=== PATIENT | female | born 1950 | race Caucasian/White ===

== ENCOUNTER 2016-10-02 19:00 | Emergency (ER) | payer MEDICARE, BC ==
[2016-10-02 19:23] VITALS: BP 127/74
[2016-10-02] MEDS ORDERED: Phenylephrine 1% NASAL* 15 ML BOT BOTH NARES ONE (19:26)
[2016-10-02] MEDS ORDERED: Silver Nitrate/Potassium Nitr* 1 EA STICK TOPICAL ONE (19:42)
--- NOTE | 2016-10-02 20:51 | UC ---
Epistaxis Nasal HPI - HPI Summary HPI Summary: nosebleed for past 2 hours. Steady drip, can't get it stopped. She is pinching the bridge of her nose to try to stop it. Has Kleenex stuffed up nose. No bleeding at present, though she can feel it dripping down throat. - History of Current Complaint Chief Complaint: UCGeneralIllness Stated Complaint: nose bleed Time Seen by Provider: 10/02/16 19:26 Hx Obtained From: Patient Onset/Duration: Sudden Onset, Lasting Hours - 2 Timing: Constant Severity Initially: Mild Severity Currently: Mild Pain Intensity: 0 Pain Scale Used: 0-10 Numeric Character: Light Aggravating Factor(s): Nothing - gets nosebleeds a few times a year since childhood. Has seen Dr. Tolbert, had nose cauterized twice Alleviating Factor(s): Nothing - Allergies/Home Medications Allergies/Adverse Reactions: Allergies Allergy/AdvReac Type Severity Reaction Status Date / Time Cephalexin [From Keflex] Allergy Unknown Verified 10/02/16 19:17 Reaction Details Histamine Allergy HEART Verified 10/02/16 19:17 PALPITATIONS Latex Allergy SEVERE RASH Verified 10/02/16 19:17 Sulfa Antibiotics Allergy Unknown Verified 10/02/16 19:17 Reaction Details Home Medications: Home Medications BuPROPion XL* [Bupropion XL*] 300 mg PO DAILY 10/02/16 [History Confirmed ] PMH/Surg Hx/FS Hx/Imm Hx Respiratory History Of: Reports: Bronchitis - HX OF Psychological History Of: Reports: Anxiety - ON MEDICATION FOR, Depression - Surgical History Surgical History: Yes Surgery Procedure, Year, and Place: LASIK EYE SURGERY- 10 YEARS AGO. DISCECTOMY AND FUSION. BREAST REDUCTION-10 YEARS AGO. GALLBLADDER REMOVED-20 YEARS AGO. HYSTERECTOMY WITH OOPHORECTOMY- 30 YEARS AGO. 2 HEEL SURGERIES FOR PLANTAR FASCITIS. RIGHT KNEE REPLACEMENT-4 YEARS AGO - Family History Known Family History: Negative: Blood Disorder - no bleeding disorders - Social History Occupation: Employed Full-time Lives: With Family Alcohol Use: None Substance Use Type: None Smoking Status (MU): Never Smoked Tobacco - Immunization History Most Recent Influenza Vaccination: May 2016 Review of Systems Constitutional: Negative Skin: Negative Eyes: Negative ENT: Nasal Discharge - bleeding Respiratory: Negative Cardiovascular: Negative Gastrointestinal: Negative Genitourinary: Negative Motor: Negative Neurovascular: Negative Musculoskeletal: Negative Neurological: Negative Psychological: Negative All Other Systems Reviewed And Are Negative: Yes Physical Exam Triage Information Reviewed: Yes Appearance: Well-Appearing, No Pain Distress, Well-Nourished Vital Signs: Initial Vital Signs Temp 98.5 F 10/02/16 19:14 Pulse 58 10/02/16 19:14 Resp 18 10/02/16 19:14 BP 127/74 10/02/16 19:14 Pulse Ox 98 10/02/16 19:14 Vital Signs Reviewed: Yes Eye Exam: Normal ENT Exam: Other - bleeding from right naris. Site of bleeding appears to be on septum, not far from exit ENT: Positive: Pharynx normal, TMs normal Neck exam: Normal Respiratory Exam: Normal Musculoskeletal Exam: Normal Neurological Exam: Normal Psychological Exam: Normal Skin Exam: Normal Epistaxis Nasal Course/Dx - Course Course Of Treatment: had her blow out clots. Put Flip-Synephrine spray up nose. Had her pinch for 10 min. Could see source of bleeding on septum about 1/2" from exit. Cauterized with silver nitrate three separate times. Pinched for 10 min. Bleeding stopped. No bleeding from above cautery site. No blood dripping down throat - Differential Dx/Diagnosis Differential Diagnosis/HQI/PQRI: Epistaxis, Hypertension Provider Diagnoses: epistaxis Discharge - Discharge Plan Condition: Stable Disposition: HOME Patient Education Materials: Nosebleed (ED) Referrals: Jason Stokes MD [Primary Care Provider] -
== END 2016-10-02 20:30 | disposition home or self-care (01) ==
LOC: UCCORT 19:00
DX: R04.0 Epistaxis (principal); Z88.1 Allergy status to other antibiotic agents; Z88.2 Allergy status to sulfonamides
CPT/HCPCS: 30901; 99212; A9270-GY; G0463

== ENCOUNTER 2017-05-14 14:16 | Emergency (ER) | payer MEDICARE, BC ==
[2017-05-14 14:56] VITALS: BP 130/77
--- NOTE | 2017-05-14 15:02 | UC ---
Palpitation/Dysrhythmia HP - HPI Summary HPI Summary: 66 yo F with hx anxiety and afib c/o shakiness and anxiety, and feeling like I' m dying for a few days, worse today after mowing the lawn. She states her blood pressure was "high" and her pulse was 92 and wouldn't slow down. Pt called her doctor and was advised to seek medical attention. Pt states she has recently started gabapentin for clearing her throat, and pt thinks the symptoms could be related to the gabapentin. Pt denies chest pain and SOB. States she is constipated and has had abd discomfort. No cough, no fever. Pt became nauseous during the UC visit. No vomiting. - History of Current Complaint Chief Complaint: UCGeneralIllness Stated Complaint: ANXIETY Hx Obtained From: Patient Hx Last Menstrual Period: n/a Onset/Duration: Gradual Onset, Lasting Days, Worse Since - this am, after mowing the lawn Timing: Constant Severity Initially: Moderate Severity Currently: Moderate Pain Intensity: 0 Pain Scale Used: 0-10 Numeric Character: Fast Aggravating Factor(s): Exertion - mowing the lawn Alleviating Factor(s): Nothing Associated Signs & Symptoms: Positive: Dizzy - Allergy/Home Medications Allergies/Adverse Reactions: Allergies Allergy/AdvReac Type Severity Reaction Status Date / Time Cephalexin [From Keflex] Allergy Unknown Verified 05/14/17 14:29 Reaction Details Histamine Allergy HEART Verified 05/14/17 14:29 PALPITATIONS Latex Allergy SEVERE RASH Verified 05/14/17 14:29 Sulfa Antibiotics Allergy Unknown Verified 05/14/17 14:29 Reaction Details Home Medications: Home Medications Aspirin [Aspirin 81 MG TAB] 81 mg PO DAILY 05/14/17 [History Confirmed 05/14/17] Atenolol TAB* [Tenormin TAB* 25 MG] 25 mg PO DAILY 05/14/17 [History Confirmed 05/14/17] Busparone 300 mg PO DAILY 05/14/17 [History Confirmed 05/14/17] Calcium Carbonate-Cholecalcife [Calcium 1000 + D] 1 tab PO DAILY 05/14/17 [ History Confirmed 05/14/17] Cholecalciferol TAB* [Vitamin D TAB*] 1,000 unit PO DAILY 05/14/17 [History Confirmed 05/14/17] Flaxseed (Linseed) [Flax Seed Oil 1000 mg] 1 cap PO DAILY 05/14/17 [History Confirmed 05/14/17] Gabapentin CAP(*) [Neurontin 100 mg CAP(*)] 100 mg PO BID 05/14/17 [History Confirmed 05/14/17] [place]-3 Fatty Acids [Fish Oil] 1,000 mg PO DAILY 05/14/17 [History Confirmed 12/25] Pantoprazole TAB (NF) [Protonix TAB (NF)] 40 mg PO DAILY 05/14/17 [History Confirmed 05/14/17] Sertraline* [Zoloft*] 150 mg PO DAILY 05/14/17 [History Confirmed 05/14/17] Simvastatin TAB(NF) [Zocor(NF)] 40 mg PO 1700 05/14/17 [History Confirmed ] Zolpidem TAB* [Ambien TAB*] 10 mg PO BEDTIME PRN 05/14/17 [History Confirmed 12/25] clonazePAM TAB(*) [KlonoPIN TAB(*)] 0.5 mg PO TID PRN 05/14/17 [History Confirmed 05/14/17] PMH/Surg Hx/FS Hx/Imm Hx Previously Healthy: No Endocrine History: Dyslipidemia Cardiovascular History: Atrial Fibrillation Psychological History: Other Other Psychological History: PTSD - Surgical History Surgical History: Yes Surgery Procedure, Year, and Place: LASIK EYE SURGERY- 10 YEARS AGO. DISCECTOMY AND FUSION. BREAST REDUCTION-10 YEARS AGO. GALLBLADDER REMOVED-20 YEARS AGO. HYSTERECTOMY WITH OOPHORECTOMY- 30 YEARS AGO. 2 HEEL SURGERIES FOR PLANTAR FASCITIS. RIGHT KNEE REPLACEMENT-4 YEARS AGO - Family History Known Family History: Negative: Blood Disorder - no bleeding disorders - Social History Lives: With Family - daughter Alcohol Use: None Substance Use Type: None Smoking Status (MU): Never Smoked Tobacco - Immunization History Most Recent Influenza Vaccination: no Review of Systems Constitutional: Negative Skin: Negative Eyes: Negative ENT: Negative Respiratory: Negative Cardiovascular: Palpitations Gastrointestinal: Nausea Genitourinary: Negative Motor: Negative Neurovascular: Negative Musculoskeletal: Negative Neurological: Negative Psychological: Anxious All Other Systems Reviewed And Are Negative: Yes Physical Exam Triage Information Reviewed: Yes Appearance: No Pain Distress, Well-Nourished, Ill-Appearing Vital Signs: Initial Vital Signs Temp 98.5 F 05/14/17 14:23 Pulse 84 05/14/17 14:23 Resp 16 05/14/17 14:23 BP 123/79 05/14/17 14:23 Pulse Ox 98 05/14/17 14:23 Vital Signs Reviewed: Yes Eyes: Positive: Conjunctiva Clear ENT: Positive: Normal ENT inspection Neck: Positive: Supple, Nontender, No Lymphadenopathy Respiratory: Positive: Lungs clear, Normal breath sounds, No respiratory distress Cardiovascular: Positive: RRR, No Murmur, Pulses Normal, Brisk Capillary Refill Abdomen Description: Positive: Nontender, No Organomegaly, Soft. Negative: Distended, Guarding, Hepatomegaly, McBurney's Point Tenderness, Peritoneal Signs , Pulsatile Mass, Splenomegaly Bowel Sounds: Positive: Present Musculoskeletal: Positive: Strength Intact, ROM Intact Neurological: Positive: Alert, Muscle Tone Normal Psychological Exam: Normal Skin Exam: Normal Palpitations Course/Dx - Differential Dx/Diagnosis Provider Diagnoses: palpitations. generalized anxiety disorder - Physician Notifications Discussed Patient Care With: Abisai Mckay Time Discussed With Above Provider: 15:00 Instructed by Provider To: Transfer Discharge - Discharge Plan Condition: Stable Disposition: TRANS HIGHER LVL OF CARE FAC Discharge Disposition Comment: to [facility] by [facility] ambulance
== END 2017-05-14 15:00 | disposition short-term general hospital (02) ==
LOC: UCCORT 14:16
DX: R00.2 Palpitations (principal); F41.9 Anxiety disorder, unspecified; Z86.79 Personal history of other diseases of the circulatory system
CPT/HCPCS: 93005; 99213; G0463

== ENCOUNTER 2018-06-30 16:50 | Emergency (ER) | payer MEDICARE, BC ==
[2018-06-30 17:21] VITALS: BP 95/67
--- NOTE | 2018-06-30 17:36 | UC ---
Knee Pain HPI - HPI Summary HPI Summary: Slipped and fell on wet grass today. rolled R ankle and fell on R knee. able to walk and bendover w/ no issues. does feel some pain in R ankle ,swelling, bruising. - History of Current Complaint Chief Complaint: UCLowerExtremity Stated Complaint: RIGHT ANKLE INJURY Time Seen by Provider: 06/30/18 17:19 Hx Obtained From: Patient Hx Last Menstrual Period: n/a ?: No Onset/Duration: Sudden Onset Severity Initially: Mild Severity Currently: Mild Location Of Injury: right Pain Intensity: 6 Character: Sharp Aggravating Factor(s): Movement, Weight Bearing, Prolonged Standing Alleviating Factor(s): Rest Associated Signs And Symptoms: Positive: Swelling, Bruising Able to Bear Weight: No - Risk Factors Septic Arthritis Risk Factor: Negative Gout Risk Factor: Negative - Allergies/Home Medications Allergies/Adverse Reactions: Allergies Allergy/AdvReac Type Severity Reaction Status Date / Time MS Cephalexin [From Keflex] Allergy Unknown Verified 05/14/17 14:29 Reaction Details MS Histamine [Histamine] Allergy HEART Verified 05/14/17 14:29 PALPITATIONS MS Latex [Latex] Allergy SEVERE RASH Verified 05/14/17 14:29 MS Sulfa Antibiotics Allergy Unknown Verified 05/14/17 14:29 [Sulfa Antibiotics] Reaction Details gabapentin AdvReac See Comment Verified 06/30/18 17:21 Home Medications: Home Medications Cyclobenzaprine TAB* [Flexeril 10 MG TAB*] 10 mg PO TID PRN 06/30/18 [History Confirmed 06/30/18] Oxycodone TAB(NF) [Oxycodone HCl 10 MG] 10 mg PO TID 06/30/18 [History Confirmed 06/30/18] PMH/Surg Hx/FS Hx/Imm Hx Cardiovascular History: Cardiac Disease - Surgical History Surgical History: Yes Surgery Procedure, Year, and Place: LASIK EYE SURGERY- 10 YEARS AGO. DISCECTOMY AND FUSION. BREAST REDUCTION-10 YEARS AGO. GALLBLADDER REMOVED-20 YEARS AGO. HYSTERECTOMY WITH OOPHORECTOMY- 30 YEARS AGO. 2 HEEL SURGERIES FOR PLANTAR FASCITIS. RIGHT KNEE REPLACEMENT-4 YEARS AGO - Family History Known Family History: Positive: Other - noncontributory Negative: Blood Disorder - no bleeding disorders - Social History Alcohol Use: None Substance Use Type: None Smoking Status (MU): Never Smoked Tobacco - Immunization History Most Recent Influenza Vaccination: no Review of Systems Constitutional: Negative Skin: Negative Respiratory: Negative Cardiovascular: Negative Neurovascular: Negative Musculoskeletal: Arthralgia, Edema All Other Systems Reviewed And Are Negative: Yes Physical Exam Triage Information Reviewed: Yes Appearance: Well-Appearing, No Pain Distress Vital Signs: Initial Vital Signs Temp 98.4 F 06/30/18 17:11 Pulse 80 06/30/18 17:11 Resp 16 06/30/18 17:11 BP 95/67 06/30/18 17:11 Pulse Ox 98 06/30/18 17:11 Vital Signs Reviewed: Yes Cardiovascular: Positive: Brisk Capillary Refill - in toes Musculoskeletal: Positive: ROM Limited @ - in R ankle, Edema @ - in R ankle, Other: - able to push against resistance at R ankle Neurological: Positive: Muscle Tone Normal - in LE, Other: - can feel light touch in R LE Psychological: Positive: Age Appropriate Behavior Skin: Positive: Other - bruising in R ankle Procedures - Procedure Summary Procedure Summary: Posterior Splint placed w/ crutches. Diagnostics - Radiology No standard instances Radiology Interpretation Completed By: Radiologist - IMPRESSION: OBLIQUE NONDISPLACED FRACTURE OF THE DISTAL FIBULA WITH PROBABLE NONDISPLACED FRACTURE OF THE MEDIAL MALLEOLUS. Knee Pain Course/Dx - Course Course Of Treatment: R ankle pain, swelling after fall today. Pain w/ weight bearing activities. xray neg. for fx. brace, elevate, . has oxycodone at home that she will take. will need to see ortho. - Differential Dx/Diagnosis Differential Diagnosis/HQI/PQRI: Abrasion, Bursitis, Contusion, Fracture (Closed ), Sprain, Strain, Tendonitis Provider Diagnoses: R ankle sprain Discharge - Sign-Out/Discharge Documenting (check all that apply): Patient Departure All imaging exams completed and their final reports reviewed: Yes - Discharge Plan Condition: Good Disposition: HOME Prescriptions: Ibuprofen 600 mg PO Q8HR PRN #120 tablet PRN Reason: Pain Patient Education Materials: Ankle Fracture (ED), Crutch Instructions (ED) Referrals: Jason Pedroza MD [Medical Doctor] - 1 Day Jason Stokes MD [Primary Care Provider] - Additional Instructions: Call Orthopedic doctor for follow up. You mentioned you preferred [facility], please feel free to contact them tomorrow. It is not safe for you to drive. - Billing Disposition and Condition Condition: GOOD Disposition: Home
--- NOTE | 2018-06-30 17:59 | RAD ---
HISTORY: fall on R ankle, ankle swelling Right COMPARISONS: None VIEWS: 2 , Frontal and lateral views of the right ankle FINDINGS: BONE DENSITY: There is diffuse osteopenia. BONES: There is a nondisplaced oblique fracture of the distal fibula . There is a probable nondisplaced fracture of the medial malleolus. There are plantar calcaneal enthesophytes. 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 ALIGNMENT: There is no dislocation. The mortise is intact. SOFT TISSUES: Unremarkable. OTHER FINDINGS: None. IMPRESSION: OBLIQUE NONDISPLACED FRACTURE OF THE DISTAL FIBULA WITH PROBABLE NONDISPLACED FRACTURE OF THE MEDIAL MALLEOLUS.
== END 2018-06-30 18:51 | disposition home or self-care (01) ==
LOC: UCCORT 16:50
DX: S82.831A Other fracture of upper and lower end of right fibula, initial encounter for closed fracture (principal); S93.401A Sprain of unspecified ligament of right ankle, initial encounter; W01.0XXA Fall on same level from slipping, tripping and stumbling without subsequent striking against object, initial encounter; Y92.096 Garden or yard of other non-institutional residence as the place of occurrence of the external cause; Z96.651 Presence of right artificial knee joint; Z88.2 Allergy status to sulfonamides; Z88.8 Allergy status to other drugs, medicaments and biological substances; Z88.1 Allergy status to other antibiotic agents; Z91.040 Latex allergy status
CPT/HCPCS: 99213; G0463

== ENCOUNTER 2018-11-23 09:14 | Emergency (ER) | payer MEDICARE, BC ==
[2018-11-23 09:28] VITALS: BP 114/65
--- NOTE | 2018-11-23 10:19 | UC ---
Complaint Female HPI - HPI Summary HPI Summary: 67-year-old female presents with a week and a half of dysuria, frequency, urgency, and sensation of being unable to fully empty her bladder. Denies fever , chills, abdominal pain, back or flank pain, nausea, vomiting, hematuria, vaginal discharge, or abnormal bleeding. - History Of Current Complaint Chief Complaint: UCGU Stated Complaint: UTI SYMPTOMS Time Seen by Provider: 11/23/18 09:58 Hx Last Menstrual Period: n/a Pain Intensity: 7 - Allergies/Home Medications Allergies/Adverse Reactions: Allergies Allergy/AdvReac Type Severity Reaction Status Date / Time cephalexin [From Keflex] Allergy heart Verified 11/23/18 09:25 palpatations latex Allergy Rash Verified 11/23/18 09:25 Sulfa (Sulfonamide Allergy Unknown Verified 11/23/18 09:25 Antibiotics) Reaction Details gabapentin AdvReac See Comment Verified 11/23/18 09:25 histamines Allergy heart Uncoded 11/23/18 09:25 palpations Home Medications: Home Medications Aspirin TAB* [Aspirin 325 MG TAB*] 1 tab DAILY 11/23/18 [History Confirmed 11/23] busPIRone TAB* [Buspar TAB*] 1 tab DAILY 11/23/18 [History Confirmed 11/23/18] PMH/Surg Hx/FS Hx/Imm Hx - Additional Past Medical History Additional PMH: chronic back pain GI/ History: Gastroesophageal Reflux Psychological History: Anxiety, Depression - Surgical History Surgical History: Yes Surgery Procedure, Year, and Place: LASIK EYE SURGERY- 10 YEARS AGO. DISCECTOMY AND FUSION. BREAST REDUCTION-10 YEARS AGO. GALLBLADDER REMOVED-20 YEARS AGO. HYSTERECTOMY WITH OOPHORECTOMY- 30 YEARS AGO. 2 HEEL SURGERIES FOR PLANTAR FASCITIS. RIGHT KNEE REPLACEMENT-4 YEARS AGO - Family History Known Family History: Positive: Other - noncontributory Negative: Blood Disorder - no bleeding disorders - Social History Occupation: Retired Lives: Alone Alcohol Use: None Substance Use Type: None Smoking Status (MU): Never Smoked Tobacco - Immunization History Most Recent Influenza Vaccination: no Review of Systems All Other Systems Reviewed And Are Negative: Yes Constitutional: Negative: Fever, Chills Respiratory: Positive: Negative Cardiovascular: Positive: Negative Gastrointestinal: Negative: Abdominal Pain, Vomiting, Diarrhea, Nausea Genitourinary: Positive: Dysuria, Frequency, Urgency. Negative: Hematuria, Vaginal/Penile Discharge, Ulceration/Lesion, Abnormal Bleeding Musculoskeletal: Positive: Negative Neurological: Positive: Negative Is Patient Immunocompromised?: No Physical Exam - Summary Physical Exam Summary: GENERAL APPEARANCE: Well developed, well nourished, alert and cooperative, and appears to be in no acute distress. CARDIAC: Normal S1 and S2. No S3, S4 or murmurs. Rhythm is regular. There is no peripheral edema, cyanosis or pallor. Extremities are warm and well perfused. Capillary refill is less than 2 seconds. Peripheral pulses intact. LUNGS: Clear to auscultation without rales, rhonchi, wheezing or diminished breath sounds. ABDOMEN: Positive bowel sounds. Soft, nondistended, nontender. No guarding or rebound. No masses or hepatosplenomegally. No CVA tenderness. MUSKULOSKELETAL: ROM intact to all extremities. No joint erythema or tenderness. Normal muscular development. Normal gait. SKIN: Skin normal color, texture and turgor with no lesions or eruptions. Triage Information Reviewed: Yes Vital Signs: Initial Vital Signs Temp 97.4 F 11/23/18 09:25 Pulse 79 11/23/18 09:25 Resp 18 11/23/18 09:25 BP 114/65 11/23/18 09:25 Pulse Ox 97 11/23/18 09:25 Vital Signs Reviewed: Yes Complaint Female Dx - Course Course Of Treatment: 67-year-old female presents with a week and a half of dysuria, frequency, urgency, and sensation of being unable to fully empty her bladder. Denies fever , chills, abdominal pain, back or flank pain, nausea, vomiting, hematuria, vaginal discharge, or abnormal bleeding. Afebrile. Vital signs stable. Exam reveals an adult female in no acute distress with an overall unremarkable exam. [id number] urinalysis shows 3+ leukocyte esterase, 2+ blood, 2+ protein. Urine culture is pending. We will treat for a UTI with Macrobid twice a day 5 days and Pyridium 1 tab 3 times a day 2 days. Patient is to follow-up with her primary care provider in 5 days if symptoms do not improve. Anticipatory guidance and warning symptoms were reviewed with the patient. Verbalizes understanding and agrees with plan of care. - Differential Dx/Diagnosis Differential Diagnosis/HQI/PQRI: Renal Colic, Ureteral Stone, Urinary Tract Infection Provider Diagnosis: UTI (urinary tract infection) Discharge - Sign-Out/Discharge Documenting (check all that apply): Patient Departure All imaging exams completed and their final reports reviewed: No Studies - Discharge Plan Condition: Stable Disposition: HOME Prescriptions: Nitrofurantoin Monohyd/M-Cryst [Macrobid 100 mg Capsule] 100 mg PO BID #10 cap Phenazopyridine TAB* [Pyridium 100 mg TAB*] 100 mg PO TID #6 tab Patient Education Materials: Urinary Tract Infection in Women (ED) Referrals: Jason Stokes MD [Primary Care Provider] - 5 Days (If no improvement in symptoms.) Additional Instructions: Your urine test in the clinic today is suggestive of a urinary tract infection. We will start you on an antibiotic to treat for the infection. We will also send a urine culture today to see what bacteria grow out and make sure the antibiotic you were prescribed is appropriate to treat the infection. It will take 48-72 hours to get these results. We will contact you if there is any change in your treatment plan. Start Macrobid 1 tab twice a day for 5 days. Take Pyridium 1 tablet every 8 hours for next 2 days to help with the discomfort. This medication will turn your urine an orange color. Drink plenty of fluids. Follow up with your primary care provider in 5 days if symptoms persist. Seek immediate medical attention in the emergency room if you develop fever greater than 100.5 F, have severe abdominal pain, persistent vomiting, or any worsening of symptoms. - Billing Disposition and Condition Condition: STABLE Disposition: Home - Attestation Statements Provider Attestation: Per institutional requirements, I have reviewed the chart, however, I was not consulted specifically or made aware of this patient by the midlevel provider. I did not personally evaluate, interact with , or disposition this patient.
--- NOTE | 2018-11-26 07:20 | UC ---
- Progress Note Progress Note: + E Coli on Macrobid Sensitive to Macrobid - no change wesley 11/26/18 Course/Dx - Diagnoses Provider Diagnoses: UTI (urinary tract infection) Discharge - Sign-Out/Discharge Documenting (check all that apply): Post-Discharge Follow Up All imaging exams completed and their final reports reviewed: No Studies - Discharge Plan Condition: Stable Disposition: HOME Prescriptions: Nitrofurantoin Monohyd/M-Cryst [Macrobid 100 mg Capsule] 100 mg PO BID #10 cap Phenazopyridine TAB* [Pyridium 100 mg TAB*] 100 mg PO TID #6 tab Patient Education Materials: Urinary Tract Infection in Women (ED) Referrals: Jason Stokes MD [Primary Care Provider] - 5 Days (If no improvement in symptoms.) Additional Instructions: Your urine test in the clinic today is suggestive of a urinary tract infection. We will start you on an antibiotic to treat for the infection. We will also send a urine culture today to see what bacteria grow out and make sure the antibiotic you were prescribed is appropriate to treat the infection. It will take 48-72 hours to get these results. We will contact you if there is any change in your treatment plan. Start Macrobid 1 tab twice a day for 5 days. Take Pyridium 1 tablet every 8 hours for next 2 days to help with the discomfort. This medication will turn your urine an orange color. Drink plenty of fluids. Follow up with your primary care provider in 5 days if symptoms persist. Seek immediate medical attention in the emergency room if you develop fever greater than 100.5 F, have severe abdominal pain, persistent vomiting, or any worsening of symptoms. - Billing Disposition and Condition Condition: STABLE Disposition: Home
== END 2018-11-23 10:29 | disposition home or self-care (01) ==
LOC: UCCORT 09:14
DX: N39.0 Urinary tract infection, site not specified (principal); F41.9 Anxiety disorder, unspecified; Z88.1 Allergy status to other antibiotic agents; Z88.2 Allergy status to sulfonamides; Z88.8 Allergy status to other drugs, medicaments and biological substances; Z91.040 Latex allergy status; Z79.82 Long term (current) use of aspirin; Z79.899 Other long term (current) drug therapy
CPT/HCPCS: 81003; 87077; 87086; 87186; 99212; G0463

== ENCOUNTER 2018-12-22 08:02 | Emergency (ER) | payer MEDICARE, BC ==
--- OUTSIDE RECORDS SUMMARY | 2018-12-22 08:20 | XMS REPORT | Continuity of Care Document ---
:1950 External Reference #:[id number] Author Name Micaela Chris Care Team Providers Name Role Phone Jason Stokes M.D. Care Team Information Convention Services Manager Unavailable Payers Date Identification Numbers Payment Provider Subscriber Policy Number: [id number] Medicare Brenda Vargas PayID: [id number] [address] [place] [address] Policy Number: [id number] [facility] Brenda Vargas PayID: [id number] [address] [place] [address] Advance Directives Description No Information Available Problems Date Description Provider Status Onset: 10/13/2011 Hypertrophy of nasal turbinates Ismael Tolbert M.D. Active Onset: 10/13/2011 Gastroesophageal reflux disease Ismael Tolbert M.D. Active Onset: 10/13/2011 Cough Ismael Tolbert M.D. Active Onset: 10/13/2011 Chronic rhinitis Ismael Tolbert M.D. 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 @ [employer] Tobacco Use Start: Unknown Never Smoked Cigarettes ETOH Use Never used alcohol Recreational Drug Use Never Used Drugs Tobacco Use Start: Unknown Patient has never smoked Allergies, Adverse Reactions, Alerts Date Description Reaction Status Severity Comments 02/10/2011 Keflex Active 02/10/2011 Sulfa Antibiotics Active 02/10/2011 Latex Active 02/10/2011 Histamines INCREASED HEART RATE Active 04/01/2012 Caffeine Active Medications Medication Date Status Form Strength Qnty SIG Indications Ordering Provider Pantoprazole 06/[address] 40mg 90tab 1 po qd Tomasz jessica Guevara M.D. Zoloft Active Tablets 200mg daily Unknown /0000 Ecotrin Low Active Tablets DR 81mg daily Unknown Strength 0000 Fish Oil Om3 Active Capsules DR 1000mg bid Unknown / Calcium + D Active Tablets 600-400mg bid Unknown -Unit Flax Seed Oil Active Capsules 1200mg Daily Unknown Miralax Active Powder [id number] Unknown Simvastatin Active Tablets 40mg 1 by mouth Unknown every day Buspirone HCL Active Tablets 30mg Unknown Zolpidem Tartrate Active Tablets ER 12.5mg 1 by mouth Unknown ER 0000 every night at bedtime routinely Oxycodone-Acetami Active Tablets 5-325mg 1-2 every Unknown nophen 6 hours as needed Cyclobenzaprine Active Tablets 10mg 1 by mouth Unknown HCL 0000 three times a day as needed muscle spasms Azelastine HCL 12/27 Hx Solution 137mcg/Sp 3unit 2 spays leia lopez everyday Ismael, - both M.D. 10/04 nostrils Dexilant 04/[address] 60mg 5caps one tab daily 5 Ismael, - days M.D. 02/20 sample -- Lot # [id number] 08/22 Omnaris 04/01 Hx Suspension 50mcg/Act 3unit 2 sprays s both Imsael, - nostrils M.D. 09/20 qd Singulair 10/13 Hx Tablets 10mg 7tabs 1 po qd Sample Ismael, - given M.D. 04/01 Azelastine HCL 09/13 Hx Solution 0.15% 2 sprays each Ismael, - nostril qd M.D. 09/13 Azelastine HCL 09/13 Hx Solution 137mcg/Sp 1unit 2 spays leia lopze qday both Ismael, - nostrils M.D. 04/10 Astepro 02/10 Hx Solution 0.15% 3unit 2 sprays s each Ismael, - nostril qd M.D. 09/13 Bupropion HCL XL Hx Tablets ER 300mg daily Unknown 24HR - 12/08 Centrum Silver Hx Tablets daily - 12/[address] 40mg 30cap 1 po qd Unknown s - 12/27 Simvastatin Hx Tablets 80mg hs Unknown - 12/09 Clonazepam Hx Tablets 0.5mg 1 by mouth Unknown prn - 10/04 Immunizations Description No Information Available Vital Signs Date Vital Result Comment 12/09/2018 11:45am Weight 240.00 lb Height 68 inches 5'8" BMI (Body Mass Index) 36.5 kg/m2 BP Systolic 101 mmHg BP Diastolic 57 mmHg Heart Rate 60 /min O2 % BldC Oximetry 96 % Body Temperature 97.6 F Pain Level 3 10/05/2016 9:50am Weight 242.00 lb Height 68 inches 5'8" BMI (Body Mass Index) 36.8 kg/m2 BP Systolic 128 mmHg BP Diastolic 76 mmHg Heart Rate 72 /min O2 % BldC Oximetry 98 % Body Temperature 97.6 F 09/21/2014 3:06pm Weight 241.38 lb Height 68 inches 5'8" BMI (Body Mass Index) 36.7 kg/m2 BP Systolic 112 mmHg BP Diastolic 76 mmHg Heart Rate 70 /min O2 % BldC Oximetry 98 % Body Temperature 98.0 F 12/27/2012 9:54am Weight 235.00 lb Height 68 inches 5'8" BMI (Body Mass Index) 35.7 kg/m2 BP Systolic 130 mmHg BP Diastolic 80 mmHg Heart Rate 76 /min Body Temperature 97.9 F 04/01/2012 1:56pm Weight 229.00 lb Height 68 inches 5'8" BMI (Body Mass Index) 34.8 kg/m2 BP Systolic 120 mmHg BP Diastolic 76 mmHg Heart Rate 55 /min O2 % BldC Oximetry 98 % Body Temperature 96.9 F 10/13/2011 2:19pm Weight 230.00 lb Height 68 inches 5'8" BMI (Body Mass Index) 35.0 kg/m2 BP Systolic 130 mmHg BP Diastolic 80 mmHg Heart Rate 65 /min O2 % BldC Oximetry 95 % Body Temperature 96.8 F 04/14/2011 10:03am Weight 229.00 lb Height 68 inches 5'8" BMI (Body Mass Index) 34.8 kg/m2 BP Systolic 138 mmHg BP Diastolic 80 mmHg Heart Rate 85 /min O2 % BldC Oximetry 95 % Body Temperature 97.3 F 02/10/2011 1:36pm Weight 230.00 lb Height 68 inches 5'8" BMI (Body Mass Index) 35.0 kg/m2 BP Systolic 132 mmHg BP Diastolic 84 mmHg Heart Rate 82 /min O2 % BldC Oximetry 96 % Body Temperature 97.4 F Results Test Date Facility Test Result H/L Range Note Allergens,Zone 10/05/2016 [facility] mRast Class (SEE NOTE) N 1, [address] (Text Only) [place] [address] [phone] D Pteronyssinus <0.10 kU/L N Class 0 D Farinae Mite <0.10 kU/L N Class 0 Cat Hair/Dander <0.10 kU/L N Class 0 Dog Hair/Dander <0.10 kU/L N Class 0 [facility] <0.[facility]U/L N Class 0 B[place] Grass <0.10 kU/L N Class 0 Bahia Grass <0.10 kU/L N Class 0 Cockroach,Ethiopian <0.10 kU/L N Class 0 Penicillium Not <0.10 kU/L N Class 0 Cladosporium Herbarum <0.10 kU/L N Class 0 Apergillis Fumigatus Ige <0.10 kU/L N Class 0 Mucor Racemosus <0.10 kU/L N Class 0 Alternaria Alternata <0.10 kU/L N Class 0 Stemphylium Bot <0.10 kU/L N Class 0 Birch,White <0.10 kU/L N Class 0 [place],White <0.10 kU/L N Class 0 Elm,Ethiopian (White) <0.10 kU/L N Class 0 Nixon,White <0.10 kU/L N Class 0 Hazelnut Tree T004 Ige <0.10 kU/L N Class 0 Fentress,White <0.10 kU/L N Class 0 Hancock,White <0.10 kU/L N Class 0 [place]ountain <0.10 kU/L N Class 0 Ragweed,Short/ <0.10 kU/L N Class 0 Mugwort <0.10 kU/L N Class 0 Plantain,Serbian <0.10 kU/L N Class 0 Pigweed,Rough <0.10 kU/L N Class 0 Sheep Sour Lake (DO <0.10 kU/L N Class 0 Nettle <0.10 kU/L N Class 0 Maple/Benton Ige T001 <0.10 kU/L N Class 0 3 Laboratory test 10/05/2016 [facility] Immunoglobulin 39 IU/mL N 0-100 finding [address] [place] [address] [phone] Immunoglobulin G,Quant,Serum 990 mg/dL N 700-1600 4 1 J31.0 J32.9 2 Levels of Specific IgE Class Description of Class ----- < 0.10 0 Negative 0.10 - 0.31 0/I Equivocal/Low 0.32 - 0.55 I Low 0.56 - 1.40 II Moderate 1.41 - 3.90 III High 3.91 - 19.00 IV Very High 19.01 - 100.00 V Very High >100.00 Very High 3 Test(s) [id number] Cockroach, Ethiopian; [id number]- [id number]-OtG Maria Isabel Martines were developed and had performance characteristics determined by [facility]. These tests have not been cleared or approved by the U.S. Food and Drug Administration. The FDA has determined that such clearance or approval is not necessary. These tests are used for clinical purposes. These should not be regarded as investigational or for research. Performed at: - [facility] [id number] Park Activities Coordinator: Demetrio Shell MD, Phone: [phone] Performed at: - [facility] [id number] Park Activities Coordinator: Yolanda Miguel MD, Phone: [phone] Procedures Date Code Description Status 10/05/2016 55437 Nasal/Sinus Endoscopy, Surgical, W/Control Of Epistaxis Completed 09/21/2014 03259 Nasal/Sinus Endoscopy, Surgical, W/Control Of Epistaxis Completed 12/27/2012 07762 Nasal Endoscopy, Diag. Completed 04/10/2012 62338 Nasal Endoscopy, Diag. Completed 04/01/2012 60822 Nasal Endoscopy, Diag. Completed 02/10/2011 54355 Tympanometry Completed 02/10/2011 00690 Pure Tone Audiometry, Air & Bone Completed 02/10/2011 08153 Fiberoptic Laryngoscopy,Diag. Completed Encounters Type Date Location Provider Dx Diagnosis Office Visit 12/27/2012 [facility] Ismael Tolbert M.D. 472.0 Rhinitis Chronic 9:45a 473.9 Sinusitis Chronic Unspec 470 Deviated Nasal Septum 478.0 Hypertrophy Nasal Turbinates Office Visit 04/10/2012 1:45p [facility] Ismael Tolbert M.D. 784.7 Epistaxis 470 Deviated Nasal Septum 530.81 Esophageal Reflux Office Visit 04/01/2012 1:45p [facility] Ismael Tolbert M.D. 784.7 Epistaxis 470 Deviated Nasal Septum 472.0 Rhinitis Chronic 478.0 Hypertrophy Nasal Turbinates Office Visit 10/13/2011 2:20p [facility] Ismael Tolbert, 478.0 Hypertrophy Nasal M.D. Turbinates 530.81 Esophageal Reflux 786.2 Cough 472.0 Rhinitis Chronic Office Visit 04/14/2011 10:00a [facility] Ismael Tolbert, 389.10 Hearing Loss M.D. Sensorineural Unspec 478.0 Hypertrophy Nasal Turbinates 470 Deviated Nasal Septum 530.81 Esophageal Reflux Office Visit 02/10/2011 1:30p [facility] Ismael Tolbert, 389.10 Hearing Loss M.D. Sensorineural Unspec 478.0 Hypertrophy Nasal Turbinates 470 Deviated Nasal Septum 530.81 Esophageal Reflux Plan of Treatment No Information Available
--- OUTSIDE RECORDS SUMMARY | 2018-12-22 08:21 | XMS REPORT | Continuity of Care Document ---
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 Jason Stokes MD Primary Care Physician Unavailable Payers Date Identification Numbers Payment Provider Subscriber Policy Number: [id number] Medicare Brenda Vargas PayID: [id number] [address] [place] [address] Policy Number: [id number] [facility] Brenda Vargas PayID: [id number] [address] [place] [address] Expires: 2018 Policy Number: [id number] [facility] Brenda Vargas PayID: [id number] [address] [address] [place] [address] Advance Directives Description No Information Available Problems Date Description Provider Status Onset: 11/21/2018 Body mass index 30+ - obesity Steffany Paul PA Active Onset: 11/21/2018 Low back pain Steffany Paul PA Active Onset: 11/21/2018 Bleeding from nose Steffany Paul PA Active Onset: 09/04/2018 Other nonspecific abnormal Steffany Paul PA Active finding of lung field Onset: 09/04/2018 Simple chronic bronchitis Steffany Paul PA Active Onset: 06/19/2018 Aneurysm of thoracic aorta Sloan Goodwin M.D., Active FACC Onset: 02/01/2017 Hypokalemia Sloan Goodwin M.D., Active FACC Onset: 09/06/2016 Paroxysmal atrial fibrillation Sloan Goodwin M.D., Active FAC Family History Date Family Member(s) Observation Comments General Atrial Fibrillation Father due to alcoholic () Father Lung Disease Mother Lung Disease Mother due to Diabetes () Mother due to aortic valve prolaspe () - 2017 First Sister due to Diabetes () First Sister due to thyroid () Social History Type Date Description Comments Sex Unknown Lives With Daughter Home Environment Lives With Daughter and grandaughter Diet Patient follows no dietary restrictions Occupation Retired Work Status Retired Hand Dominance Right-handed Tobacco Use Start: Unknown Never Smoked Cigarettes ETOH Use Denies alcohol use Tobacco Use Start: Unknown Patient denies history of smoking Recreational Drug Use Denies Drug Use Smoking Status Reviewed: 11/21/18 Patient denies history of smoking Exercise Type/Frequency Exercises sporadically Allergies, Adverse Reactions, Alerts Date Description Reaction Status Severity Comments 09/06/2016 Keflex Active 09/06/2016 Latex Active 09/06/2016 Sulfa Drugs Active 09/06/2016 Sulfa Antibiotics Active 12/14/2017 Gabapentin made pt feel psychotic Active Severe Medications Medication Date Status Form Strength Qnty SIG Indications Ordering Provider Flonase Allergy 03/07/20 Active Suspension 50mcg/Act 9.900 1 spray J30.89 Kheti, Relief 18 ml both MD Girma nostrils every day. Sertraline HCL Active Tablets 100mg 2 caps by Unknown 00 mouth every day Pantoprazole Active Tablets DR 40mg 1 by Unknown Sodium 00 mouth every day Bupropion HCL ER Active Tablets ER 300mg 1 by Unknown (XL) 00 24HR mouth every day Simvastatin Active Tablets 40mg 1 by Unknown 00 mouth every day Calcium 500 + D3 Active Tablets 500-600mg 1 by Unknown 00 -Unit mouth once a day Vitamin D Active Capsules 1000Unit 1 by Unknown (Cholecalciferol 00 mouth ) every day Aspirin Adult Active Tablets DR 81mg 1 by Unknown Low Dose 00 mouth every day Flax Seed Oil Active Capsules 1000mg 1 by Unknown 00 mouth every day Clonazepam Active Tablets 0.5mg 1 by Unknown 00 mouth three times a day as needed Oxycodone-Acetam Active Tablets 5-325mg 1 po Aysha inophen 00 every 6 , Cindy hours as S., CFNP needed Zolpidem Active Tablets 10mg 30tab as needed Unknown Tartrate 00 s Gabapentin 04/05/20 Hx Capsules 100mg 60cap take 1 J41.0 Kheti, 17 - s tablet MD Girma Unknown daily for 7 days. Then increase to 1 tablet twice daily. Potassium 02/13/20 Hx Tablets ER 10Meq 14tab take one Davidenko Chloride ER 17 - s tablet by Sloan 04/05/20 mouth Lauren Fay, 17 once a FACC day Potassium 09/06/20 Hx Capsules 10Meq 30cap 2 by I48.0 Davidenko Chloride ER 16 - ER s mouth Sloan Unknown twice a M.Lauren, day FACC during the preparati on Fish Oil Hx Capsules 1000mg 1 by Unknown Burp-Less 00 - mouth Unknown every day Azelastine HCL Hx Solution 0.1% 2 spays Unknown (Nasal) 00 - in each Unknown nostril twice a day as needed Cyclobenzaprine Hx Tablets 10mg 1 po Aysha HCL 00 - three , Cindy Unknown times a S., CFNP day as needed Atenolol Hx Tablets 25mg 1 by Unknown 00 - mouth Unknown every day as needed Hydroxyzine HCL Hx Solution 25mg/ml 3x daily Unknown 00 - as needed Unknown Immunizations Description No Information Available Vital Signs Date Vital Result Comment 11/21/2018 10:17am BP Systolic Sitting Left Arm 110 mmHg BP Diastolic Sitting Left Arm 68 mmHg Heart Rate 64 /min Respiratory Rate 16 /min Height 67.5 inches 5'7.50" Weight 240.00 lb BMI (Body Mass Index) 37.0 kg/m2 BSA (Body Surface Area) 2.20 m2 [place] body weight in kilograms 62 kg O2 Saturation Level with Exercise 97 % 09/04/2018 9:21am BP Systolic Sitting Left Arm 110 mmHg BP Diastolic Sitting Left Arm 65 mmHg Heart Rate 66 /min Respiratory Rate 18 /min Height 67.5 inches 5'7.50" Weight 234.00 lb BMI (Body Mass Index) 36.1 kg/m2 BSA (Body Surface Area) 2.17 m2 [place] body weight in kilograms 62 kg O2 % BldC Oximetry 97 % 06/19/2018 1:07pm BP Systolic Sitting Left Arm 112 mmHg BP Diastolic Sitting Left Arm 70 mmHg Heart Rate 58 /min Respiratory Rate 18 /min Height 67.5 inches 5'7.50" Weight 231.00 lb BMI (Body Mass Index) 35.6 kg/m2 BSA (Body Surface Area) 2.16 m2 [place] body weight in kilograms 62 kg 03/07/2018 3:10pm BP Systolic Sitting Left Arm 114 mmHg BP Diastolic Sitting Left Arm 72 mmHg Heart Rate 68 /min Respiratory Rate 18 /min Height 67.5 inches 5'7.50" Weight 226.00 lb BMI (Body Mass Index) 34.9 kg/m2 BSA (Body Surface Area) 2.14 m2 [place] body weight in kilograms 62 kg O2 % BldC Oximetry 96 % Room air 12/18/2017 10:57am BP Systolic Sitting Right Arm 122 mmHg BP Diastolic Sitting Right Arm 64 mmHg Heart Rate 80 /min Respiratory Rate 16 /min Height 67.5 inches 5'7.50" Weight 218.00 lb BMI (Body Mass Index) 33.6 kg/m2 BSA (Body Surface Area) 2.11 m2 [place] body weight in kilograms 62 kg 12/14/2017 2:30pm BP Systolic Sitting Left Arm 119 mmHg BP Diastolic Sitting Left Arm 77 mmHg Heart Rate 80 /min Respiratory Rate 20 /min Height 67.5 inches 5'7.50" Weight 219.50 lb BMI (Body Mass Index) 33.9 kg/m2 BSA (Body Surface Area) 2.11 m2 [place] body weight in kilograms 62 kg O2 % BldC Oximetry 90 % Ra Pain Level 10 07/04/2017 3:59pm BP Systolic Sitting Left Arm 119 mmHg BP Diastolic Sitting Left Arm 70 mmHg Heart Rate 65 /min Respiratory Rate 16 /min Height 67.5 inches 5'7.50" Weight 215.00 lb BMI (Body Mass Index) 33.2 kg/m2 BSA (Body Surface Area) 2.10 m2 [place] body weight in kilograms 62 kg O2 % BldC Oximetry 93 % 05/25/2017 10:20am BP Systolic Sitting Right Arm 98 mmHg BP Diastolic Sitting Right Arm 78 mmHg Heart Rate 54 /min Respiratory Rate 16 /min Height 67.5 inches 5'7.50" Weight 219.00 lb BMI (Body Mass Index) 33.8 kg/m2 BSA (Body Surface Area) 2.11 m2 [place] body weight in kilograms 62 kg 04/05/2017 1:50pm BP Systolic Sitting Left Arm 112 mmHg BP Diastolic Sitting Left Arm 68 mmHg Heart Rate 51 /min Respiratory Rate 16 /min Height 67.5 inches 5'7.50" Weight 224.00 lb BMI (Body Mass Index) 34.6 kg/m2 BSA (Body Surface Area) 2.13 m2 [place] body weight in kilograms 62 kg O2 % BldC Oximetry 96 % Room air 03/06/2017 1:10pm BP Systolic Sitting Right Arm 114 mmHg BP Diastolic Sitting Right Arm 68 mmHg Heart Rate 54 /min Respiratory Rate 18 /min Height 67.5 inches 5'7.50" Weight 227.00 lb BMI (Body Mass Index) 35.0 kg/m2 BSA (Body Surface Area) 2.14 m2 [place] body weight in kilograms 62 kg O2 % BldC Oximetry 95 % Room air 02/01/2017 3:40pm BP Systolic Sitting Left Arm 134 mmHg BP Diastolic Sitting Left Arm 78 mmHg Heart Rate 60 /min Respiratory Rate 16 /min Height 67.5 inches 5'7.50" Weight 244.00 lb BMI (Body Mass Index) 37.6 kg/m2 BSA (Body Surface Area) 2.21 m2 [place] body weight in kilograms 62 kg 10/19/2016 1:12pm BP Systolic Sitting Left Arm 102 mmHg BP Diastolic Sitting Left Arm 64 mmHg Heart Rate 68 /min Respiratory Rate 16 /min Height 67.5 inches 5'7.50" Weight 239.00 lb BMI (Body Mass Index) 36.9 kg/m2 BSA (Body Surface Area) 2.19 m2 09/06/2016 2:40pm BP Systolic Sitting Left Arm 126 mmHg BP Diastolic Sitting Left Arm 76 mmHg Heart Rate 51 /min Respiratory Rate 18 /min Height 67.5 inches 5'7.50" Weight 244.00 lb BMI (Body Mass Index) 37.6 kg/m2 BSA (Body Surface Area) 2.21 m2 [place] body weight in kilograms 62 kg Results Test Date Facility Test Result H/L Range Note Anion Gap N2N/CCD Import Anion Gap 6 Low 8-16 SerPl-sCnc 017 SerPl-sCnc WBC # Bld Auto N2N/CCD Import WBC # Bld Auto 6.7 3.1-10.7 017 Sodium SerPl-sCnc N2N/CCD Import Sodium SerPl-sCnc 144 136-145 017 RDW RBC Auto-Rto N2N/CCD Import RDW RBC Auto-Rto 13.1 11.7-14.4 017 RDW RBC Auto N2N/CCD Import RDW RBC Auto 42.4 3-47 017 Potassium N2N/CCD Import Potassium 3.6 3.5-5.1 SerPl-sCnc 017 SerPl-sCnc Platelets N2N/CCD Import Platelets 202 150-400 [#/volume] in Blood 017 [#/volume] in by Automated count Blood by Automated count PMV Bld Auto N2N/CCD Import PMV Bld Auto 10.3 8.9-12.4 017 Automated N2N/CCD Import Automated 31.2 25.9-32.7 erythrocyte mean 017 erythrocyte mean corpuscular corpuscular hemoglobin hemoglobin (mass per erythrocyte) Automated N2N/CCD Import Automated 34.1 30.8-34.3 erythrocyte mean 017 erythrocyte mean corpuscular corpuscular hemoglobin hemoglobin concentration measurement (mass/volume) BUN SerPl-mCnc N2N/CCD Import BUN SerPl-mCnc 16 7-18 017 BUN/Creat SerPl N2N/CCD Import BUN/Creat SerPl 17.7 017 Basophils N2N/CCD Import Basophils 0.01 0.0-0.1 [#/volume] in Blood 017 [#/volume] in by Automated count Blood by Automated count Basophils/leuk NFr N2N/CCD Import Basophils/leuk NFr 0.2 0.0- 1.1 Bld Auto 017 Bld Auto Blood erythrocytes N2N/CCD Import Blood erythrocytes 4.23 3.90- 5.40 automated count 017 automated count (number/volume) (number/volume) Blood hemoglobin N2N/CCD Import Blood hemoglobin 13.2 11.6-15.8 measurement 017 measurement (mass/volume) (mass/volume) Blood monocytes N2N/CCD Import Blood monocytes 0.55 0.3-0.9 automated count 017 automated count (number/volume) (number/volume) Co2 SerPl-sCnc N2N/CCD Import Co2 SerPl-sCnc 27 21-32 017 Calcium SerPl-mCnc N2N/CCD Import Calcium SerPl-mCnc 8.5 8.5- 10.1 017 Chloride SerPl-sCnc N2N/CCD Import Chloride 111 High 98-107 017 SerPl-sCnc Creat SerPl-mCnc N2N/CCD Import Creat SerPl-mCnc 0.9 0.6-1.3 017 Eosinophil # Bld N2N/CCD Import Eosinophil # Bld 0.13 0.0-0.5 Auto 017 Auto Eosinophil/leuk NFr N2N/CCD Import Eosinophil/leuk 2.0 0.0-6.6 Bld Auto 017 NFr Bld Auto Glucose N2N/CCD Import Glucose 123 High 74-106 [Mass/volume] in 017 [Mass/volume] in Serum or Plasma Serum or Plasma Hct VFr Bld Auto N2N/CCD Import Hct VFr Bld Auto 38.7 36.0-46.1 017 Lymphocytes N2N/CCD Import Lymphocytes 2.40 1.0-4.0 [#/volume] in Blood 017 [#/volume] in by Automated count Blood by Automated count Lymphocytes/leuk N2N/CCD Import Lymphocytes/leuk 36.0 20.0-42.0 NFr Bld Auto 017 NFr Bld Auto MCV RBC Auto N2N/CCD Import MCV RBC Auto 91.5 80.9-99.0 017 Monocytes/leuk NFr N2N/CCD Import Monocytes/leuk NFr 8.3 4.3- 13.2 Bld Auto 017 Bld Auto Neutrophils # Bld N2N/CCD Import Neutrophils # Bld 3.57 1.8-7.0 Auto 017 Auto Neutrophils/leuk N2N/CCD Import Neutrophils/leuk 53.5 40.4-72.8 NFr Bld Auto 017 NFr Bld Auto TSH SerPl-aCnc N2N/CCD Import TSH SerPl-aCnc 2.69 0.30-4.20 017 Serum or plasma N2N/CCD Import Serum or plasma 0.4 0.2-1.0 total bilirubin 017 total bilirubin measurement (mass/ measurement (mass/volume) Serum or plasma N2N/CCD Import Serum or plasma 1.02 0.76-1.46 thyroxine (T4) free 017 thyroxine (T4) measurement (m free measurement (mass/volume) Serum or plasma N2N/CCD Import Serum or plasma 46 26-192 creatine kinase 017 creatine kinase measurement (enzym measurement (enzymatic activity/volume) Prothrombin time N2N/CCD Import Prothrombin time 12.7 12.0-14.4 (PT) in platelet 017 (PT) in platelet poor plasma by c poor plasma by coagulation assay Prot SerPl-mCnc N2N/CCD Import Prot SerPl-mCnc 7.2 6.4-8.2 017 Magnesium N2N/CCD Import Magnesium 2.1 1.8-2.4 SerPl-mCnc 017 SerPl-mCnc Inr N2N/CCD Import Inr 1.0 0.9-1.1 017 Globulin Ser N2N/CCD Import Globulin Ser 3.7 1.9-4.3 Calc-mCnc 017 Calc-mCnc Fibrin D-dimer Feu N2N/CCD Import Fibrin D-dimer Feu 0.31 measurement in 017 measurement in platelet poor pl platelet poor plasma (mass/volume) Aspartate N2N/CCD Import Aspartate 13 Low 15-37 aminotransferase 017 aminotransferase [Enzymatic [Enzymatic activity/vol activity/volume] in Serum or Plasma Albumin/Glob SerPl N2N/CCD Import Albumin/Glob SerPl 0.9 017 Albumin SerPl-mCnc N2N/CCD Import Albumin SerPl-mCnc 3.5 3.4- 5.0 017 Activated partial N2N/CCD Import Activated partial 22.6 *L 23.4- 35.0 thromboplastin time 017 thromboplastin (aPTT) in pl time (aPTT) in platelet poor plasma by coagulation assay Alt SerPl-cCnc N2N/CCD Import Alt SerPl-cCnc 22 12-78 017 Alp SerPl-cCnc N2N/CCD Import Alp SerPl-cCnc 83 45-117 017 Alisa direct serum N2N/CCD Import Alisa direct serum Negative Negative 017 [facility] <0.2 AI 0.0-0.9 1 [address]odies [address] Antibodies (Ssa) [place] [address] [phone] Sjogrens Antibodies (SSB) <0.2 AI 0.0-0.9 2 Laboratory test 03/06/2017 CRM Anti-Nuclear Negative Negative finding [address] Antibodies AU/[place] [address] Direct [phone] Basic Metabolic 02/08/2017 [facility] Glucose 80 mg/dL N 74-[address] [place], [place] [id number] [phone] BUN 15 mg/dL N 7-18 Creatinine 0.8 mg/dL N 0.6-1.3 Glom Filtration Rate, Estimate >60 mL/min >60 If >60 mL/min >60 4 BUN/Creat 18.7 ratio Sodium 143 mmol/L N 136-145 Potassium 4.1 mmol/L N 3.5-5.1 Chloride 107 mmol/L N 98-107 Carbon Dioxide 29 mmol/L N 21-32 Anion Gap 7 mEq/L Low 8-16 Calcium 9.3 mg/dL N 8.5-10.1 Blood Gas Patient 08/24/2016 N2N/CCD Import Blood Gas Patient 47 Heart Rate Heart Rate FiO2 08/24/2016 N2N/CCD Import FiO2 21 21-100 Miscellaneous Test 08/24/2016 N2N/CCD Import Miscellaneous Test 408 Comment Comment Miscellaneous Test Comment 1 Oxygen 08/24/2016 N2N/CCD Import Oxygen Saturation 86 Low 93-98 Saturation (Pulse Oximetry) (Pulse Oximetry) Laboratory test 08/24/2016 N2N/CCD Import Thyroid 2.45 0.30-4.20 finding Stimulating Hormone (TSH) Laboratory test 08/23/2016 N2N/CCD Import Blood Gas 16 finding Respiration Rate Blood Gas 08/23/2016 N2N/CCD Import Blood Gas Patient Resting Patient Status Status Blood Gas 08/23/2016 N2N/CCD Import Blood Gas Lying Flat Position Position In Bed Oxygen 08/23/2016 N2N/CCD Import Oxygen Saturation 93 93-98 Saturation (Pulse Oximetry) (Pulse Oximetry) Laboratory test 08/23/2016 N2N/CCD Import Anion Gap 9 8-16 finding BUN/Creatinine Ratio 21.2 Blood Urea Nitrogen 17 7-18 Calcium Level 8.0 Low 8.5-10.1 Carbon Dioxide Level 25 21-32 Chloride Level 109 High 98-107 Creatinine 0.8 0.6-1.3 Glucose Screen 159 High 74-106 Magnesium Level 1.7 Low 1.8-2.4 Potassium Level 4.2 # 3.5-5.1 Sodium Level 143 136-145 Laboratory test 08/22/2016 N2N/CCD Import Alanine Aminotransferase 23 12 -78 finding (Alt/SGPT) Albumin 3.2 Low 3.4-5.0 Albumin/Globulin Ratio 1.0 Alkaline Phosphatase 66 45-117 Band Neutrophils % 2 0-8 Basophils # (Auto) 0.02 0.0-0.1 Eosinophils # (Auto) 0.07 0.0-0.5 Globulin 3.1 1.9-4.3 Hematocrit 35.4 Low 36.0-46.1 Hemoglobin 11.9 11.6-15.8 Lipase 208 73-393 Mean Corpuscular Hemoglobin 30.2 25.9-32.7 Mean Corpuscular Hemoglobin Concent 33.6 30.8-34.3 Mean Corpuscular Volume 89.8 80.9-99.0 Mean Platelet Volume 10.4 8.9-12.4 Monocytes # (Auto) 0.58 0.3-0.9 Neutrophils % 76 High 33-73 Platelet Count 167 155-360 RDW Coefficient of Variation 12.6 11.7-14.4 Red Blood Count 3.94 3.90-5.40 Red Cell Distribution Width 40.0 3-47 Total Bilirubin 0.3 0.2-1.0 Total Protein 6.3 Low 6.4-8.2 White Blood Count 10.9 High 3.1-10.7 Aspartate Amino 08/22/2016 N2N/CCD Import Aspartate Amino 14 Low 15-37 Transf (Ast/Sgot) Transf (Ast/Sgot) Differential Total 08/22/2016 N2N/CCD Import Differential 100 Cells Counted Total Cells Counted Eosinophils % 08/22/2016 N2N/CCD Import Eosinophils % 1 0-5 Lymphocytes # 08/22/2016 N2N/CCD Import Lymphocytes # 1.46 Low 1.8-7.0 (Auto) (Auto) Lymphocytes % 08/22/2016 N2N/CCD Import Lymphocytes % 16 Low 17-56 Manual Slide 08/22/2016 N2N/CCD Import Manual Slide Diff Ordered Review Review (Hematology) (Hematology) Monocytes % 08/22/2016 N2N/CCD Import Monocytes % 5 0-10 Total Creatine 08/22/2016 N2N/CCD Import Total Creatine 61 26-192 Kinase Kinase Platelet Estimate 08/22/2016 N2N/CCD Import Platelet Estimate Normal Neutrophils # 08/22/2016 N2N/CCD Import Neutrophils # 8.80 High 1.8-7.0 (Auto) (Auto) 1 J41.0 2 Performed at: RN - [facility] [address] [id number] Audio Video Mechanic: Yolanda Miguel MD, Phone: [phone] 3 O77.52 4 Note: Persistent reduction for 3 months or more in an eGFR <60 mL/min/1.73 m2 defines CKD. Patients with eGFR values >/=60 mL/min/1.73 m2 may also have CKD if evidence of persistent proteinuria is present. The original MDRD equation for estimated GFR is not valid for patients less than 18 years of age. Additional information may be found at www.kdoqi.org. Procedures Date Code Description Status 11/08/2018 60743 Spirometry Completed 11/08/2018 92279 Spirometry Completed 06/19/2018 30958 EKG-Tracing And Report Completed 03/22/2018 15833 Bronchospasm Provocation Evaluation Multi Spirometric Completed Determinati 03/22/2018 42237 Spirometry Completed 12/18/2017 00080 EKG-Tracing And Report Completed 05/25/2017 70813 EKG-Tracing And Report Completed 05/15/2017 53729 Echocardiogram Complete Completed 03/07/2017 45688 Bronchospasm Provocation Evaluation Multi Spirometric Completed Determinati 03/07/2017 64509 Spirometry Completed 09/06/2016 10780 Event Monitor Inter/Review Only Completed 09/06/2016 30044 EKG-Tracing And Report Completed 08/25/2016 15388 Stress Test Interpre And Report Only Completed 08/25/2016 82681 Stress Test Physician Super Only Completed 08/25/2016 33083 Myocardial Imaging Tomographic Multiple Study AT Rest Or Completed Stress 08/23/2016 60191 Echocardiogram Complete Completed Encounters Type Date Location Provider Dx Diagnosis Office Visit 11/21/2018 Cardiology Office Marleen Jarquin I71.2 Thoracic aortic 11:10a Sudha, [place], aneurysm, without HIGH TENSION TESTER rupture I48.0 Paroxysmal atrial fibrillation I10 Essential (primary) hypertension Office Visit 11/21/2018 10:20a Pulmonology Steffany Paul, R91.8 Other nonspecific PA abnormal finding of lung field R04.0 Epistaxis M54.5 Low back pain Z68.37 Body mass index (BMI) 37.0-37.9, adult Office Visit 09/04/2018 9:30a Pulmonology Juany Paul91.8 Other nonspecific Steffany PA abnormal finding of lung field Office Visit 06/19/2018 1:00p Cardiology Office Buddy I48.0 Paroxysmal atrial Sloancamron Fay fibrillation Lauren, [facility] I71.2 Thoracic aortic aneurysm, without rupture Office Visit 03/07/2018 3:00p Pulmonology Girma Brown MD R91.8 Other nonspecific abnormal finding of lung field J41.0 Simple chronic bronchitis J30.89 Other allergic rhinitis I48.91 Unspecified atrial fibrillation Office Visit 12/18/2017 11:00a Cardiology Office Bari I71.2 Thoracic aortic Marlyss B., PA aneurysm, without rupture I10 Essential (primary) hypertension I48.0 Paroxysmal atrial fibrillation R94.31 Abnormal electrocardiogram [ECG] [EKG] Office Visit 12/14/2017 Orthopaedic Ramon, S32.000A Wedge compression 2:00p Office Makenzie Camacho, fracture of unsp RPAC lumbar vertebra, init Office Visit 07/04/2017 Pulmonology Girma Brown, J41.0 Simple chronic 3:45p bronchitis J84.10 Pulmonary fibrosis, unspecified Office Visit 05/25/2017 10:20a Cardiology Office Bari R07.9 Chest pain, Marlyss B., PA unspecified I10 Essential (primary) hypertension I48.0 Paroxysmal atrial fibrillation R94.31 Abnormal electrocardiogram [ECG] [EKG] Office Visit 04/05/2017 1:45p Pulmonology Girma Brown, J41.0 Simple chronic MD bronchitis Office Visit 03/06/2017 1:00p Pulmonology Girma Brown, J41.0 Simple chronic MD bronchitis Office Visit 02/01/2017 3:40p Cardiology Office Buddy I48.0 Paroxysmal atrial gonzalez Del Real M.D., FAC E87.6 Hypokalemia Office Visit 10/19/2016 Cardiology Marleen Jarquin I48.0 Paroxysmal atrial 1:00p Office LAVERNE Haley, fibrillation HIGH TENSION TESTER R06.02 Shortness of breath Office Visit 09/06/2016 Cardiology Sloan Goodwin I48.0 Paroxysmal atrial 2:00p Office Lauren Fay, FACC fibrillation Office Visit 08/23/2016 Cardiology Sloan Goodwin I48.0 Paroxysmal atrial 3:42p Office [facility], [facility] Office Visit 06/26/2006 Operating Room Ismael Tolbert, 784.7 Epistaxis 2:20p M.DDewey Plan of Treatment Future Appointment(s):11/21/2019 11:20 am - Sloan Goodwin M.D., FACC at Cardiology [facility]05/27/2019 1:00 pm - Steffany Paul PA at [facility]/14/ 2019 - Marleen Jarquin, MSN, FNPI71.2 Thoracic aortic aneurysm, without ruptureNew Xrays:CT, Chest W Out Contrast, Ordered: 11/21/18Comments:Will re- evaluate with CT chest in one yearI48.0 Paroxysmal atrial fibrillationComments: Monitor. No NOAC at this time.I10 Essential (primary) hypertensionComments:No changes.AllFollow up:Follow up visit in one year with CT chest just prior
[2018-12-22 08:48] VITALS: BP 133/71
--- NOTE | 2018-12-22 09:12 | UC ---
Throat Pain/Nasal Refugio HPI - HPI Summary HPI Summary: 68-year-old female presents with complaints of one week history of progressively worsening sore throat. States she has been having upper respiratory symptoms including nasal congestion, postnasal drip, bilateral ear fullness, and occasionally productive cough for yellow sputum for approximately 1 month. Symptoms are associated with fatigue. Denies fever, chills, ear pain , dysphagia, chest pain, shortness of breath, abdominal pain, nausea, vomiting, or diarrhea. - History of Current Complaint Chief Complaint: UCRespiratory Stated Complaint: ST Time Seen by Provider: 12/22/18 08:49 Hx Obtained From: Patient Hx Last Menstrual Period: n/a Pain Intensity: 5 - Allergies/Home Medications Allergies/Adverse Reactions: Allergies Allergy/AdvReac Type Severity Reaction Status Date / Time cephalexin [From Keflex] Allergy heart Verified 12/22/18 08:44 palpatations latex Allergy Rash Verified 12/22/18 08:44 Sulfa (Sulfonamide Allergy Unknown Verified 12/22/18 08:44 Antibiotics) Reaction Details gabapentin AdvReac See Comment Verified 12/22/18 08:44 histamines Allergy heart Uncoded 12/22/18 08:44 palpations PMH/Surg Hx/FS Hx/Imm Hx Endocrine History: Dyslipidemia GI/ History: Gastroesophageal Reflux Psychological History: Anxiety, Depression - Surgical History Surgical History: Yes Surgery Procedure, Year, and Place: LASIK EYE SURGERY- 10 YEARS AGO. DISCECTOMY AND FUSION. BREAST REDUCTION-10 YEARS AGO. GALLBLADDER REMOVED-20 YEARS AGO. HYSTERECTOMY WITH OOPHORECTOMY- 30 YEARS AGO. 2 HEEL SURGERIES FOR PLANTAR FASCITIS. RIGHT KNEE REPLACEMENT-4 YEARS AGO - Family History Known Family History: Positive: Non-Contributory - Social History Occupation: Retired Lives: With Family Alcohol Use: None Substance Use Type: None Smoking Status (MU): Never Smoked Tobacco - Immunization History Most Recent Influenza Vaccination: no Review of Systems All Other Systems Reviewed And Are Negative: Yes Constitutional: Positive: Fatigue. Negative: Fever, Chills Skin: Negative: Rash Eyes: Negative: Drainage, Eye Redness ENT: Positive: Sore Throat, Nasal Discharge, Sinus Congestion. Negative: Ear Ache, Sinus Pain/Tenderness Respiratory: Positive: Cough. Negative: Shortness Of Breath Cardiovascular: Negative: Palpitations, Chest Pain Gastrointestinal: Negative: Abdominal Pain, Vomiting, Diarrhea, Nausea Genitourinary: Positive: Negative Musculoskeletal: Positive: Negative Neurological: Positive: Negative Is Patient Immunocompromised?: No Physical Exam - Summary Physical Exam Summary: GENERAL APPEARANCE: Well developed, well nourished, alert and cooperative, and appears to be in no acute distress. EYES: Conjunctiva clear. No drainage. EARS: External auditory canals and tympanic membranes clear, hearing grossly intact. NOSE: Mild-moderate nasal congestion. THROAT: Mild pharyngeal erythema with cobblestoning. No tonsilar inflammation, swelling, exudate, or lesions. Uvula midline. NECK: Neck supple, non-tender without lymphadenopathy. CARDIAC: Normal S1 and S2. No S3, S4 or murmurs. Rhythm is regular. There is no peripheral edema, cyanosis or pallor. Extremities are warm and well perfused. Capillary refill is less than 2 seconds. Peripheral pulses intact. LUNGS: Clear to auscultation without rales, rhonchi, wheezing or diminished breath sounds. Loose, non-productive cough. ABDOMEN: Positive bowel sounds. Soft, nondistended, nontender. No guarding or rebound. No masses or hepatosplenomegally. MUSKULOSKELETAL: ROM intact to all extremities. No joint erythema or tenderness. Normal muscular development. Normal gait. SKIN: Skin normal color, texture and turgor with no lesions or eruptions. Triage Information Reviewed: Yes Vital Signs: Initial Vital Signs Temp 98 F 12/22/18 08:42 Pulse 62 12/22/18 08:42 Resp 18 12/22/18 08:42 BP 133/71 12/22/18 08:42 Pulse Ox 97 12/22/18 08:42 Vital Signs Reviewed: Yes Throat Pain/Nasal Course/Dx - Course Course Of Treatment: 68-year-old female presents with complaints of one week history of progressively worsening sore throat. States she has been having upper respiratory symptoms including nasal congestion, postnasal drip, bilateral ear fullness, and occasionally productive cough for yellow sputum for approximately 1 month. Symptoms are associated with fatigue. Denies fever, chills, ear pain , dysphagia, chest pain, shortness of breath, abdominal pain, nausea, vomiting, or diarrhea. Afebrile. Vital signs stable. Exam is remarkable for mild to moderate nasal congestion, mild pharyngeal erythema with cobblestoning. Clear bilateral breath sounds, and loose nonproductive cough. Considering the duration of her symptoms I am going to treat her for a upper respiratory infection versus possible sinusitis with Augmentin 875 mg twice a day 10 days as well as symptomatic treatment. She is to follow-up with her primary care provider within the next 5 days for recheck of her symptoms. Anticipatory guidance at warning symptoms were reviewed with the patient. Verbalizes understanding and agrees with plan of care. - Differential Dx/Diagnosis Differential Diagnosis/HQI/PQRI: Pharyngitis, Sinusitis, Tonsillitis, URI Provider Diagnosis: URI (upper respiratory infection) Discharge - Sign-Out/Discharge Documenting (check all that apply): Patient Departure All imaging exams completed and their final reports reviewed: No Studies - Discharge Plan Condition: Stable Disposition: HOME Prescriptions: Amoxicillin/Clavulanate TAB* [Augmentin TAB 875*] 875 mg PO BID #20 tab Fluticasone NASAL SPRAY 50MCG* [Flonase NASAL SPRAY 50MCG*] 2 spray BOTH NARES DAILY #1 btl Patient Education Materials: Upper Respiratory Infection (ED) Referrals: Jason Stokes MD [Primary Care Provider] - 5 Days Additional Instructions: Your history and exam are consistent with an upper respiratory infection. Considering the duration of your symptoms we will treat you with an antibiotic. Start Augmentin 875 mg twice a day for 10 days. Be sure to take with food to avoid upset stomach. Be sure to complete the entire course even if feeling better. Get plenty of rest. Drink plenty of fluids. Use a saline rinse kit such as Neti Pot or NeilMed at least twice a day to help thin secretions and promote drainage of the sinuses. Use fluticasone (Flonase) nasal spray 2 sprays each nostril once daily. Take over the counter acetaminophen (Tylenol) or ibuprofen (Advil, Motrin) according to directions as needed for pain or fever. Use salt water gargles several times a day if you have a sore throat. You may also use Chloraseptic spray or Cepacol lonzenges according to directions which contain a numbing medication and can provide some temporary relief from your sore throat. Follow up with your primary care provider in 5 days for recheck of symptoms. Seek immediate medical attention in the emergency room if you have fever greater than 100.5 F despite taking acetaminophen or ibuprofen, have chest pain , difficulty breathing, are unable to swallow, or have any worsening of symptoms. - Billing Disposition and Condition Condition: STABLE Disposition: Home - Attestation Statements Provider Attestation: Per institutional requirements, I have reviewed the chart, however, I was not consulted specifically or made aware of this patient by the midlevel provider. I did not personally evaluate, interact with , or disposition this patient.
== END 2018-12-22 09:32 | disposition home or self-care (01) ==
LOC: UCCORT 08:02
DX: J06.9 Acute upper respiratory infection, unspecified (principal); R53.83 Other fatigue; J02.9 Acute pharyngitis, unspecified; R09.81 Nasal congestion; E78.5 Hyperlipidemia, unspecified; K21.9 Gastro-esophageal reflux disease without esophagitis; F41.9 Anxiety disorder, unspecified; F32.9 Major depressive disorder, single episode, unspecified; Z96.651 Presence of right artificial knee joint; Z88.2 Allergy status to sulfonamides; Z88.8 Allergy status to other drugs, medicaments and biological substances; Z88.1 Allergy status to other antibiotic agents; Z91.040 Latex allergy status
CPT/HCPCS: 99212; G0463

== ENCOUNTER 2019-05-11 13:46 | Emergency (ER) | payer MEDICARE, BC ==
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
--- OUTSIDE RECORDS SUMMARY | 2019-05-11 14:37 | XMS REPORT | Continuity of Care Document ---
:1950 External Reference #:[id number] Author Name Marleen Jarquin, MSN, ORTHOPEDIC TECH Address [address] [place] [address] Care Team Providers Name Role Phone Jason Stokes MD - Internal Care Team Information [employer]ishing Range Tender [phone] Medicine Problems Active Problems Provider Date Malaise and fatigue Marleen Jarquin, MSN, Onset: 04/15/2019 ORTHOPEDIC TECH Essential hypertension Marleen Jarquin, MSN, Onset: 04/15/2019 ORTHOPEDIC TECH Body mass index 30+ - obesity Steffany Paul PA Onset: 11/21/2018 Low back pain Steffany Paul PA Onset: 11/21/2018 Bleeding from nose Steffany Paul PA Onset: 11/21/2018 Other nonspecific abnormal finding Steffany Paul PA Onset: 09/04/2018 of lung field Simple chronic bronchitis Steffany Paul PA Onset: 09/04/2018 Aneurysm of thoracic aorta Sloan Goodwin M.D., [facility] Onset: 06/19/2018 Hypokalemia Sloan Goodwin M.D., [facility] Onset: 02/01/2017 Paroxysmal atrial fibrillation Sloan Goodwin M.D., [facility] Onset: 2015 Social History Type Date Description Comments Sex Unknown Tobacco Use Start: Unknown Never Smoked Cigarettes ETOH Use Denies alcohol use Tobacco Use Start: Unknown Patient denies history of smoking Recreational Drug Use Denies Drug Use Smoking Status Reviewed: 11/21/18 Patient denies history of smoking Exercise Type/Frequency Exercises sporadically Allergies, Adverse Reactions, Alerts Active Allergies Reaction Severity Comments Date Keflex 09/06/2016 Latex 09/06/2016 Sulfa Drugs 09/06/2016 Sulfa Antibiotics 09/06/2016 Gabapentin made pt feel psychotic Severe 12/14/2017 Medications Active Medications SIG Qnty Indications Ordering Provider Date Sertraline HCL 2 caps by mouth Unknown 100mg every day Tablets Pantoprazole Sodium 1 by mouth every Unknown 40mg day Tablets Bupropion HCL ER (XL) 1 by mouth every Unknown 300mg day Tablets ER 24HR Simvastatin 1 by mouth every Unknown 40mg Tablets day Calcium 500 + D3 1 by mouth once Unknown a day [id number] Tablets Vitamin D 1 by mouth every Unknown (Cholecalciferol) day 1000Unit Capsules Aspirin Adult Low Dose 1 by mouth every Unknown 81mg day Tablets DR Flax Seed Oil 1 by mouth every Unknown 1000mg day Capsules Clonazepam 1 by mouth three Unknown 0.5mg Tablets times a day as needed Immunizations Description No Information Available Vital Signs Date Vital Result Comment 04/15/2019 8:13am BP Systolic Sitting Right Arm 140 mmHg BP Diastolic Sitting Right Arm 82 mmHg Heart Rate 75 /min Respiratory Rate 16 /min Height 67.5 inches 5'7.50" Weight 234.00 lb BMI (Body Mass Index) 36.1 kg/m2 BSA (Body Surface Area) 2.17 m2 [place] body weight in kilograms 62 kg O2 % BldC Oximetry 93 % 11/21/2018 10:17am BP Systolic Sitting Left Arm 110 mmHg BP Diastolic Sitting Left Arm 68 mmHg Heart Rate 64 /min Respiratory Rate 16 /min Height 67.5 inches 5'7.50" Weight 240.00 lb BMI (Body Mass Index) 37.0 kg/m2 BSA (Body Surface Area) 2.20 m2 [place] body weight in kilograms 62 kg O2 Saturation Level with Exercise 97 % Results Description No Information Available Procedures Date Code Description Status 11/08/2018 56114 Spirometry Completed 11/08/2018 69609 Spirometry Completed Medical Devices Description No Information Available Encounters Type Date Location Provider Dx Diagnosis Office Visit 11/21/2018 Cardiology Office Marleen Jarquin I71.2 Thoracic aortic 11:10a Sudha, [place], aneurysm, without ORTHOPEDIC TECH rupture I48.0 Paroxysmal atrial fibrillation I10 Essential (primary) hypertension Office Visit 11/21/2018 10:20a Pulmonology Steffany Paul, R91.8 Other nonspecific PA abnormal finding of lung field R04.0 Epistaxis M54.5 Low back pain Z68.37 Body mass index (BMI) 37.0-37.9, adult Assessments Date Code Description Provider 04/15/2019 Z01.810 Encounter for preprocedural Marleen Jarquin, [place], cardiovascular examination [facility] 04/15/2019 I48.0 Paroxysmal atrial fibrillation Marleen Jarquin, [place], [facility] 04/15/2019 R53.83 Other fatigue Marleen Jarquin, [place], [facility] 04/15/2019 I71.2 Thoracic aortic aneurysm, without Marleen Jarquin, MSN, rupture [facility] 04/15/2019 I10 Essential (primary) hypertension Marleen Jarquin MSN, [facility] 11/21/2018 I71.2 Thoracic aortic aneurysm, without Marleen Jarquin MSN, rupture [facility] 11/21/2018 R91.8 Other nonspecific abnormal finding Steffany Paul PA of lung field 11/21/2018 I48.0 Paroxysmal atrial fibrillation Sloan Goodwin M.D., [facility] 11/21/2018 R04.0 Epistaxis Steffany Paul, PA 11/21/2018 I48.0 Paroxysmal atrial fibrillation Marleen Jarquin MSN, [facility] 11/21/2018 I71.2 Thoracic aortic aneurysm, without Sloan Goodwin M.D. , rupture [facility] 11/21/2018 M54.5 Low back pain Steffany Paul, PA 11/21/2018 I10 Essential (primary) hypertension Marleen Jarquin, [place], [facility] 11/21/2018 Z68.37 Body mass index (BMI) 37.0-37.9, Steffany Paul PA adult 11/08/2018 R91.8 Other nonspecific abnormal finding Girma Brown MD of lung field 11/08/2018 R91.8 Other nonspecific abnormal finding Steffany Paul PA of lung field Plan of Treatment Future Appointment(s):11/21/2019 11:20 am - Sloan Goodwin M.D., [facility] at [facility]/27/2019 1:00 pm - Steffany Paul PA at [facility]06/ 2019 - Marleen Jarquin, [place], FNPZ01.810 Encounter for preprocedural cardiovascular examinationComments:She may proceed with the surgery with the above risk profile.I48.0 Paroxysmal atrial fibrillationNew Orders:Overnight Oximetry, Ordered: 04/15/19Comments:We still have an "open" order in the system for the overnight oximetry and will have this done in the near future.R53.83 Other fatigueNew Orders:Overnight Oximetry, Ordered: 04/15/19Comments:As above.I71.2 Thoracic aortic aneurysm, without ruptureComments:Repeat CT is planned for Essential (primary) hypertensionComments:Monitor.AllFollow up:Keep visit in November to follow up. Functional Status Description No Information Available Mental Status Description No Information Available Referrals Description No Information Available
[2019-05-11 14:43] VITALS: BP 131/72
--- NOTE | 2019-05-11 14:44 | UC ---
General HPI - HPI Summary HPI Summary: per triage, Pt c/o sore throat x 4 days. Pt reports she has developed sinus pressure and congestion over the last couple of days also. Painful to swallow, unproductive cough, some chest congestion. Pt denies fever or chills. [ End ] sore throat x 4 days. past 2 days, sinus congestion, cough and chest congestion. occasional wheezes. no hx asthma or copd. had pneumonia once and this feels similar. - CP. + weak/fatigued. - History of Current Complaint Stated Complaint: SORE THROAT, COUGH Time Seen by Provider: 05/11/19 14:37 Hx Obtained From: Patient Hx Last Menstrual Period: n/a Onset/Duration: Gradual Onset Timing: Constant Associated Signs & Symptoms: Negative: Diarrhea, Dysuria, Vomiting - Allergy/Home Medications Allergies/Adverse Reactions: Allergies Allergy/AdvReac Type Severity Reaction Status Date / Time cephalexin [From Keflex] Allergy heart Verified 05/11/19 14:43 palpatations latex Allergy Rash Verified 05/11/19 14:43 Sulfa (Sulfonamide Allergy Unknown Verified 05/11/19 14:43 Antibiotics) Reaction Details gabapentin AdvReac See Comment Verified 05/11/19 14:43 histamines Allergy heart Uncoded 05/11/19 14:43 palpations Home Medications: Home Medications Aspirin [Adult Low Dose Aspirin EC] 1 tab PO DAILY 05/11/19 [History Confirmed 05/11/19] Hydrocodone/Acetaminophen [Beltrami 10-325 Tablet] 1 tab PO Q4H PRN 05/11/19 [ History Confirmed 05/11/19] Tizanidine HCl [Zanaflex] 1 tab PO Q8H PRN 05/11/19 [History Confirmed 05/11/19] PMH/Surg Hx/FS Hx/Imm Hx - Additional Past Medical History Additional PMH: recent back surgery GI/ History: Gastroesophageal Reflux Psychological History: Depression - Surgical History Surgical History: Yes Surgery Procedure, Year, and Place: LASIK EYE SURGERY- 10 YEARS AGO. DISCECTOMY AND FUSION. BREAST REDUCTION-10 YEARS AGO. GALLBLADDER REMOVED-20 YEARS AGO. HYSTERECTOMY WITH OOPHORECTOMY- 30 YEARS AGO. 2 HEEL SURGERIES FOR PLANTAR FASCITIS. RIGHT KNEE REPLACEMENT-4 YEARS AGO - Family History Known Family History: Positive: Other - noncontributory, Non-Contributory Negative: Blood Disorder - no bleeding disorders - Social History Alcohol Use: None Substance Use Type: None Smoking Status (MU): Never Smoked Tobacco - Immunization History Most Recent Influenza Vaccination: no Review of Systems All Other Systems Reviewed And Are Negative: No Constitutional: Positive: Fatigue. Negative: Fever, Chills Eyes: Negative: Drainage, Eye Redness ENT: Positive: Sore Throat, Sinus Congestion. Negative: Ear Ache Respiratory: Positive: Cough. Negative: Shortness Of Breath Cardiovascular: Negative: Palpitations, Chest Pain Gastrointestinal: Negative: Abdominal Pain, Vomiting, Diarrhea Genitourinary: Negative: Dysuria Motor: Positive: Weakness Musculoskeletal: Positive: Myalgia, Other: - stable low back discomfort s/p surgery Neurological: Positive: Paresthesia - LLE s/p surgery. Physical Exam Triage Information Reviewed: Yes Appearance: Ill-Appearing - but non toxic Eyes: Positive: Conjunctiva Clear ENT: Positive: Pharyngeal erythema - with slight swelling, Nasal congestion, TMs normal. Negative: Nasal drainage, Sinus tenderness Neck: Positive: Supple, Nontender, No Lymphadenopathy. Negative: Nuchal Rigidity Respiratory: Positive: Lungs clear, No accessory muscle use, Decreased breath sounds - slight. Negative: Crackles, Rhonchi, Wheezing Cardiovascular: Positive: RRR, No Murmur Abdomen Description: Positive: Nontender Musculoskeletal: Positive: ROM Intact Neurological: Positive: Alert Psychological: Positive: Age Appropriate Behavior Skin Exam: Normal Diagnostics - Laboratory Lab Results: rapid strep=negative - Radiology No standard instances Radiology Interpretation Completed By: Radiologist - cxr=IMPRESSION: No active cardiopulmonary disease is noted. Re-Evaluation - Re-Evaluation First Eval Re-Evaluation Time: 15:33 Change: Improved - better aeartion. pt felt neb tx was helpful Course/Dx - Differential Dx - Multi-Symptom Differential Diagnoses: Other - non toxic. not hypoxic. rapid strep=neg. cxr= nad. antibiotic not indicated. - Diagnoses Provider Diagnosis: URI (upper respiratory infection), Acute pharyngitis, Acute bronchitis Discharge ED - Sign-Out/Discharge Documenting (check all that apply): Patient Departure All imaging exams completed and their final reports reviewed: Yes - Discharge Plan Condition: Stable Disposition: HOME Prescriptions: Albuterol HFA INHALER* [Ventolin HFA Inhaler*] 2 puff INH Q6H #1 mdi Patient Education Materials: Pharyngitis (ED), Upper Respiratory Infection (DC) , Acute Bronchitis (ED) Referrals: Jason Stokes MD [Primary Care Provider] - 5 Days Additional Instructions: FOLLOW UP SOONER IF WORSE - Billing Disposition and Condition Condition: STABLE Disposition: Home - Attestation Statements Provider Attestation: I was available for consult. This patient was seen by the LUZ MARINA. The patient was not presented to , seen by or examined by tx -Keaton Edwards MD
[2019-05-11] MEDS ORDERED: Albuterol 2.5 MG/3 ML NEB.SOL* (0.083%) INH ONE (14:52)
== END 2019-05-11 15:50 | disposition home or self-care (01) ==
LOC: UCCORT 13:46
DX: J06.9 Acute upper respiratory infection, unspecified (principal); J02.9 Acute pharyngitis, unspecified; J98.01 Acute bronchospasm; Z88.1 Allergy status to other antibiotic agents; Z88.2 Allergy status to sulfonamides
CPT/HCPCS: 71046; 87651; 99212; G0463

== ENCOUNTER 2019-11-07 17:44 | Emergency (ER) | payer MEDICARE, BC ==
--- OUTSIDE RECORDS SUMMARY | 2019-11-07 18:24 | XMS REPORT | Continuity of Care Document ---
:1950 External Reference #:[id number] Author Name Ismael Tolbert M.D. (transmitted by agent of provider Micaela Chris) Address [address] [place] [address] Care Team Providers Name Role Phone Jason Stokes M.D. Care Team Information [employer] Builder [phone] Sonny Cevallos MD - Pulmonary Care Team Information [employer] Builder [phone] Disease Problems Active Problems Provider Date Hypertrophy of nasal turbinates Ismael Tolbert M.D. Onset: 10/13/2011 Gastroesophageal reflux disease Ismael Tolbert M.D. Onset: 10/13/2011 Cough Ismael Tolbert M.D. Onset: 10/13/2011 Chronic rhinitis Ismael Tolbert M.D. Onset: 10/13/2011 Social History Type Date Description Comments Sex Unknown Tobacco Use Start: Unknown Never Smoked Cigarettes ETOH Use Never used alcohol Recreational Drug Use Never Used Drugs Tobacco Use Start: Unknown Patient has never smoked Allergies, Adverse Reactions, Alerts Active Allergies Reaction Severity Comments Date Keflex 02/10/2011 Sulfa Antibiotics 02/10/2011 Latex 02/10/2011 Histamines INCREASED HEART RATE 02/10/2011 Caffeine 04/01/2012 Medications Active Medications SIG Qnty Indications Ordering Date Provider Pantoprazole Sodium 1 po qd 90tabs Ismael Tolbert, 06/05/2012 40mg M.D. Tablets Zoloft daily Unknown 200mg Tablets Ecotrin Low Strength daily Unknown 81mg Tablets Fish Oil Om3 bid Unknown 1000mg Capsules DR Calcium + D bid Unknown [id number] Tablets Flax Seed Oil Daily Unknown 1200mg Capsules Miralax Unknown [id number] Powder Simvastatin 1 by mouth every Unknown 40mg Tablets day Buspirone HCL Unknown 30mg Tablets Zolpidem Tartrate ER 1 by mouth every Unknown 12.5mg night at bedtime Tablets ER routinely Oxycodone-Acetaminophen 1-2 every 6 hours Unknown as needed 5-325mg Tablets Cyclobenzaprine HCL 1 by mouth three Unknown 10mg times a day as Tablets needed muscle spasms Immunizations Description No Information Available Vital Signs Date Vital Result Comment 10/16/2019 10:03am Weight 227.00 lb Height 68 inches 5'8" BMI (Body Mass Index) 34.5 kg/m2 BP Systolic 125 mmHg BP Diastolic 66 mmHg Heart Rate 66 /min O2 % BldC Oximetry 95 % Body Temperature 98.1 F [place] Score 2 Neck Circumference in inches 16 Pain Level 0 03/28/2019 8:39am Weight 235.00 lb Height 68 inches 5'8" BMI (Body Mass Index) 35.7 kg/m2 BP Systolic 125 mmHg BP Diastolic 70 mmHg Heart Rate 62 /min O2 % BldC Oximetry 95 % Body Temperature 98.4 F Pain Level 0 Results Description No Information Available Procedures Description No Information Available Medical Devices Description No Information Available Encounters Description No Information Available Assessments Description No Information Available Plan of Treatment No Information Available Functional Status Description No Information Available Mental Status Description No Information Available Referrals Description No Information Available
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
--- OUTSIDE RECORDS SUMMARY | 2019-11-07 18:24 | XMS REPORT | Continuity of Care Document ---
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 Medicine Problems Active Problems Provider Date Malaise and fatigue Marleen Jarquin, MSN, Onset: 04/15/2019 [employer] DEVELOPER Essential hypertension Marleen Jarquin, MSN, Onset: 04/15/2019 [employer] DEVELOPER Body mass index 30+ - obesity Steffany Paul PA Onset: 11/21/2018 Low back pain Steffany Paul PA Onset: 11/21/2018 Bleeding from nose Steffany Paul PA Onset: 11/21/2018 Other nonspecific abnormal finding Steffany Paul PA Onset: 09/04/2018 of lung field Simple chronic bronchitis Steffany Paul PA Onset: 09/04/2018 Aneurysm of thoracic aorta Sloan Goodwin M.D., [facility] Onset: 06/19/2018 Hypokalemia Sloan Goodwin M.D., [facility] Onset: 02/01/2017 Paroxysmal atrial fibrillation Sloan Goodwin M.D., [facility] Onset: 2015 Social History Type Date Description Comments Sex Unknown Tobacco Use Start: Unknown Never Smoked Cigarettes ETOH Use Denies alcohol use Tobacco Use Start: Unknown Patient denies history of smoking Recreational Drug Use Denies Drug Use Smoking Status Reviewed: 09/30/19 Patient denies history of smoking Exercise Type/Frequency [...] by mouth every Unknown 40mg day Tablets DR Bupropion HCL ER (XL) 1 by mouth every Unknown 300mg day Tablets ER 24HR Simvastatin 1 by mouth every Unknown 40mg Tablets day Calcium 500 + D3 1 by mouth once Unknown a day [id number] Tablets Aspirin Adult Low Dose 1 by mouth every Unknown 81mg day Tablets DR Clonazepam 1 by mouth three Unknown 0.5mg Tablets times a day as needed Albuterol Sulfate HFA inhale 1 puff by Unknown mouth and Into 108(90Base) mcg/Act The Lungs every Aerosol 6 hours Vitamin D3 1 by mouth every Unknown 1000Unit day Capsules Flax Seed Oil 1 PO Daily Unknown Co-Q 10 Lewis-3 Fish 2 tabs by mouth Unknown Oil every day Lewis-3 Capsules Aleve take one every 4 Unknown 220mg Tablets hours as needed for pain Tylenol 8 Hour 1 tab by mouth Unknown 650mg twice a day as Tablets ER needed Probiotic Acidophilus take one every Unknown Super Strength day Tablets Immunizations Description No Information Available Vital Signs Date Vital Result Comment 09/30/2019 2:03pm BP Systolic Sitting Left Arm 128 mmHg BP Diastolic Sitting Left Arm 78 mmHg Heart Rate 85 /min Respiratory Rate 16 /min Height 67.5 inches 5'7.50" Weight 221.00 lb BMI (Body Mass Index) 34.1 kg/m2 BSA (Body Surface Area) 2.12 m2 [place] body weight in kilograms 62 kg O2 Saturation Level with Exercise 97 % 05/27/2019 1:24pm BP Systolic 116 mmHg BP Diastolic 62 mmHg Heart Rate 72 /min Respiratory Rate 20 /min Height 67.5 inches 5'7.50" Weight 216.00 lb BMI (Body Mass Index) 33.3 kg/m2 BSA (Body Surface Area) 2.10 m2 [place] body weight in kilograms 62 kg O2 % BldC Oximetry 92 % Results Test Acquired Date Facility Test Result H/L Range Note Nocturnal Oximetry 06/11/2019 [facility] Low Oximetry 84 % Low 93-98 [address] [place] [address] [phone] Fio2 21 Normal 21-100 Heart Rate 52 BPM Duration Of Study 391 MINUTES Total Time Below 88% 0.5 MINUTES Continuous Oximetry 06/09/2019 [facility] Oximetry 94 % Normal 93-98 [address] [place] [address] [phone] Fio2 21 Normal 21-100 Heart Rate 81 BPM Patient Status RESTING 1 R06.02 SOB Procedures Date Code Description Status 07/10/2019 17186 Eye Exam New Patient Comprehensive Completed Medical Devices Description No Information Available Encounters Type Date Location Provider Dx Diagnosis Office Visit 05/27/2019 Pulmonology Steffany Paul PA 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 J30.89 Other allergic rhinitis I48.0 Paroxysmal atrial fibrillation R91.8 Other nonspecific abnormal finding of lung field Office Visit 04/15/2019 Cardiology Marleen Jarquin Z01.810 Encounter for 8:00a Office LAVERNE Haley, preprocedural [employer] DEVELOPER cardiovascular examination I48.0 Paroxysmal atrial fibrillation R53.83 Other fatigue I71.2 Thoracic aortic aneurysm, without rupture I10 Essential (primary) hypertension Assessments Date Code Description Provider 09/30/2019 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 Eloy Rodriguez MD 09/30/2019 R91.8 Other nonspecific abnormal finding Eloy Rodriguez MD of lung field 09/30/2019 R53.83 Other fatigue Eloy Rodriguez MD 09/30/2019 R05 Cough Eloy Rodriguez MD 07/10/2019 H04.123 Dry eye syndrome of bilateral Kannan Michael MD lacrimal glands 07/10/2019 H25.813 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, bilateral 07/10/2019 I48.0 Paroxysmal atrial fibrillation Kannan Michael MD 05/27/2019 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 Steffany Paul PA 05/27/2019 J30.89 Other allergic rhinitis Steffany Paul PA 05/27/2019 I48.0 Paroxysmal atrial fibrillation Steffany Paul PA 05/27/2019 R91.8 Other nonspecific abnormal finding Steffany Paul PA of lung field 04/15/2019 Z01.810 Encounter for preprocedural Marleen Jarquin, MSN, cardiovascular examination [employer] DEVELOPER 04/15/2019 I48.0 Paroxysmal atrial fibrillation Marleen Jarquin, LAVERNE, [employer] DEVELOPER 04/15/2019 R53.83 Other fatigue Marleen Jarquin, LAVERNE, [employer] DEVELOPER 04/15/2019 I71.2 Thoracic aortic aneurysm, without JarquinMarleen rodrigues MSN, rupture [employer] DEVELOPER 04/15/2019 I10 Essential (primary) hypertension Marleen Jarquin, LAVERNE, [facility] Plan of Treatment Future Appointment(s):11/20/2019 11:20 am - Sloan Goodwin M.D., FACC at Cardiology Fwyltg3109/30/2019 - Eloy Rodriguez MD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Referral:Ismael Tolbert MD, GyvzzrowodownlpokqaB77.8 Other nonspecific abnormal finding of lung fieldNew Orders:PFT Without Bronchodilator, Ordered: R53.83 Other [id number] Cough Functional Status Description No Information Available Mental Status Description No Information Available Referrals Refer to Reason for Referral Status Appt Date Ismael Tolbert MD Patient with daytime sleepiness, fatigue, STOP Created 00/ BANG 4, sending for sleep apnea evaluation and possibly PSG [address] [place] [id number] [phone]
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
--- OUTSIDE RECORDS SUMMARY | 2019-11-07 18:24 | XMS REPORT | Continuity of Care Document ---
:1950 External Reference #:[id number] Author Name Ismael Tolbert M.D. (transmitted by agent of provider Micaela Chris) Address [address] [place] [address] Care Team Providers Name Role Phone Jason Stokes M.D. Care Team Information [facility] [employer] [phone] Sonny Cevallos MD - Pulmonary Care Team Information [facility] [employer] Disease Problems Active Problems Provider Date Hypertrophy [...] Capsules DR Calcium + D bid Unknown [id number] Tablets Flax Seed Oil Daily Unknown 1200mg [...] Available Vital Signs Date Vital Result Comment 11/05/2019 1:45pm Weight 222.00 lb Height 68 inches 5'8" BMI (Body Mass Index) 33.8 kg/m2 BP Systolic 116 mmHg BP Diastolic 76 mmHg Heart Rate 88 /min O2 % BldC Oximetry 93 % Body Temperature 98.0 F Pain Level 0 10/16/2019 10:03am Weight 227.00 lb Height 68 inches 5'8" BMI (Body Mass Index) 34.5 kg/m2 BP Systolic 125 mmHg BP Diastolic 66 mmHg Heart Rate 66 /min O2 % BldC Oximetry 95 % Body Temperature 98.1 F Wishek Score 2 Neck Circumference in inches 16 Pain Level 0 Results Description No Information Available Procedures Date Code Description Status 10/20/2019 05104 Sleep Staging 4Or More Para Completed 10/16/2019 59362 Fiberoptic Laryngoscopy,Diag. Completed Medical Devices Description No Information Available Encounters Type Date Location Provider Dx Diagnosis Office Visit 10/16/2019 Main Office Ismael Tolbert M.D. R13.10 Dysphagia, 10:00a unspecified K21.9 Gastro-esophageal reflux disease without esophagitis R06.83 Snoring G47.9 Sleep disorder, unspecified Assessments Date Code Description Provider 10/20/2019 G47.33 Obstructive sleep apnea (adult) Sleep Lab - Herrera De Los Santos MD (pediatric) 10/16/2019 R13.10 Dysphagia, unspecified Ismael Tolbert M.D. 10/16/2019 K21.9 Gastro-esophageal reflux disease Ismael Tolbert M.D. without esophagitis 10/16/2019 R06.83 Snoring Ismael Tolbert M.D. 10/16/2019 G47.9 Sleep disorder, unspecified Ismael Tolbert M.D. Plan of Treatment Future Appointment(s):12/15/2019 10:45 am - Mirna Manzanares NP at Main [facility]4511/24/2019 2:00 pm - Tomasz Romero at [facility] ([facility]) Functional Status Description No Information Available Mental Status Description No Information Available Referrals Description No Information Available
[2019-11-07 18:36] VITALS: BP 135/82
--- NOTE | 2019-11-07 19:12 | UC ---
Abdominal Pain Female HPI - HPI Summary HPI Summary: 68 yo female with the onset of lower abd pain x 2 weeks Initially it would come and go Now constant initially n/v now diarrhea (5x d) fever and chills no UTI symptoms - History of Current Complaint Chief Complaint: UCGeneralIllness Stated Complaint: FEVER/VOMITTING Time Seen by Provider: 11/07/19 19:03 Hx Obtained From: Patient Hx Last Menstrual Period: n/a Onset/Duration: Gradual Onset, Lasting Weeks Timing: Intermittent Episodes Lasting: - hours Severity Initially: Mild Severity Currently: Severe Pain Intensity: 9 Pain Scale Used: 0-10 Numeric Location: Other - diffuse lower Radiates: Yes Radiates to: Back Character: Colicy, Cramping Aggravating Factor(s): Movement Alleviating Factor(s): Spontaneous Resolution Associated Signs and Symptoms: Positive: Fever, Back Pain, Decreased Appetite, Nausea, Vomiting, Diarrhea Allergies/Adverse Reactions: Allergies Allergy/AdvReac Type Severity Reaction Status Date / Time cephalexin [From Keflex] Allergy heart Verified 11/07/19 18:36 palpatations latex Allergy Rash Verified 11/07/19 18:36 Sulfa (Sulfonamide Allergy Unknown Verified 11/07/19 18:36 Antibiotics) Reaction Details gabapentin AdvReac See Comment Verified 11/07/19 18:36 histamines Allergy heart Uncoded 11/07/19 18:36 palpations Home Medications: Home Medications Pantoprazole TAB * [Protonix TAB (NF)] 40 mg PO DAILY 05/14/17 [History Confirmed 11/07/19] Sertraline* [Zoloft*] 200 mg PO DAILY 05/14/17 [History Confirmed 11/07/19] Simvastatin TAB(NF) [Zocor(NF)] 40 mg PO 1700 05/14/17 [History Confirmed ] clonazePAM TAB(*) [KlonoPIN TAB(*)] 0.5 mg PO TID PRN 05/14/17 [History Confirmed 11/07/19] busPIRone TAB* [Buspar TAB*] 1 tab PO DAILY 11/23/18 [History Confirmed 11/07/19 ] Fluticasone NASAL SPRAY 50MCG* [Flonase NASAL SPRAY 50MCG*] 2 spray BOTH NARES DAILY #1 btl 12/22/18 [Rx Confirmed 11/07/19] Aspirin [Adult Low Dose Aspirin EC] 1 tab PO DAILY 05/11/19 [History Confirmed 11/07/19] Albuterol HFA INHALER* [Ventolin HFA Inhaler*] 2 puff INH Q6H PRN 11/07/19 [ History Confirmed 11/07/19] Calcium Carbonate/Vitamin D3 [Calcium 600 + Vit D Tablet] 1 each PO DAILY [History Confirmed 11/07/19] Cholecalciferol TAB* [Vitamin D TAB*] 1 tab DAILY 11/07/19 [History Confirmed ] L.acidoph,Paracasei, B.lactis [Probiotic] 2 tab PO DAILY 11/07/19 [History Confirmed 11/07/19] PMH/Surg Hx/FS Hx/Imm Hx Previously Healthy: Yes Endocrine History: Dyslipidemia Cardiovascular History: Cardiac Disease, Hypertension, Atrial Fibrillation Respiratory History: Asthma - Surgical History Surgical History: Yes Surgery Procedure, Year, and Place: LASIK EYE SURGERY- 10 YEARS AGO. DISCECTOMY AND FUSION 04/2019. BREAST REDUCTION-10 YEARS AGO. GALLBLADDER REMOVED-20 YEARS AGO. HYSTERECTOMY WITH OOPHORECTOMY- 30 YEARS AGO. 2 HEEL SURGERIES FOR PLANTAR FASCITIS. RIGHT KNEE REPLACEMENT-4 YEARS AGO - Family History Known Family History: Positive: Other - noncontributory, Non-Contributory Negative: Blood Disorder - no bleeding disorders - Social History Alcohol Use: None Substance Use Type: None Smoking Status (MU): Never Smoked Tobacco Household Exposure Type: Cigarettes - Immunization History Most Recent Influenza Vaccination: no Review of Systems All Other Systems Reviewed And Are Negative: Yes Constitutional: Positive: Fever, Chills, Fatigue Skin: Positive: Negative Eyes: Positive: Negative ENT: Positive: Negative Respiratory: Positive: Negative Cardiovascular: Positive: Negative Gastrointestinal: Positive: Abdominal Pain, Vomiting, Diarrhea, Nausea Genitourinary: Positive: Negative Motor: Positive: Negative Neurovascular: Positive: Negative Musculoskeletal: Positive: Negative Neurological/Mental Status: Positive: Negative Psychological: Positive: Negative Physical Exam Triage Information Reviewed: Yes Appearance: Well-Appearing, No Pain Distress, Well-Nourished Vital Signs: Initial Vital Signs Temp 98.1 F 11/07/19 18:33 Pulse 70 11/07/19 18:33 Resp 18 11/07/19 18:33 BP 135/82 11/07/19 18:33 Pulse Ox 99 11/07/19 18:33 Vital Signs Reviewed: Yes Eyes: Positive: Conjunctiva Clear ENT: Positive: Hearing grossly normal. Negative: Nasal congestion, Nasal drainage, Trismus, Muffled voice, Hoarse voice, Uvula midline Dental Exam: Normal Neck: Positive: Supple, Nontender, No Lymphadenopathy Respiratory: Positive: Lungs clear, Normal breath sounds, No respiratory distress, No accessory muscle use Cardiovascular: Positive: RRR, No Murmur Abdomen Description: Positive: Soft, Other: - tender LLQ> suprapubic>RLQ. Negative: Nontender, CVA Tenderness (R), CVA Tenderness (L) Bowel Sounds: Positive: Present, Hypoactive Musculoskeletal: Positive: ROM Intact, No Edema Neurological: Positive: Alert Psychological Exam: Normal Skin Exam: Normal Abd Pain Female Course/Dx - Course Course Of Treatment: Advised patient to return to [facility] ER for evaluation d/W Shayna Ye CONSULTING ENGINEER going via POV - Differential Dx/Diagnosis Provider Diagnosis: LLQ abdominal pain Discharge ED - Sign-Out/Discharge Documenting (check all that apply): Patient Departure All imaging exams completed and their final reports reviewed: No Studies - Discharge Plan Condition: Stable Disposition: HOME-RECOMMEND TO ED Referrals: Jason Stokes MD [Primary Care Provider] - - Billing Disposition and Condition Condition: STABLE Disposition: Home-Recommend to ED
== END 2019-11-07 19:19 | disposition home health service (06) ==
LOC: UCCORT 17:44
DX: R10.32 Left lower quadrant pain (principal); R19.7 Diarrhea, unspecified; R11.2 Nausea with vomiting, unspecified; R50.9 Fever, unspecified; R53.83 Other fatigue; E78.5 Hyperlipidemia, unspecified; I51.9 Heart disease, unspecified; I10 Essential (primary) hypertension; J45.909 Unspecified asthma, uncomplicated; Z88.1 Allergy status to other antibiotic agents; Z88.2 Allergy status to sulfonamides; Z88.8 Allergy status to other drugs, medicaments and biological substances; Z91.040 Latex allergy status; Z79.82 Long term (current) use of aspirin; Z79.899 Other long term (current) drug therapy
CPT/HCPCS: 99212; G0463